=== PATIENT | female | born 1940 | race Caucasian/White ===

== ENCOUNTER 2020-05-26 11:06 | Inpatient (IN) ==
[2020-05-26] MEDS ORDERED: GABAPENTIN 400 MG CAPSULE PO SCH (11:30)
[2020-05-26] MEDS ORDERED: ceFAZolin 2 GM in DEXTROSE 5% IN WATER 50 ML IV SCH (12:00)
[2020-05-26] MEDS ORDERED: oxyCODONE 10 MG TAB.ER.12H PO SCH (12:00)
[2020-05-26] MEDS ORDERED: CELECOXIB 200 MG CAPSULE PO SCH (12:00)
[2020-05-26 12:48] LABS: Basophils # (Auto) 0.03 K/mcL (0.00-0.30); Basophils % (Auto) 0.5 % (0.0-2.0); Eosinophils # (Auto) 0.15 K/mcL (0.00-0.70); Eosinophils % (Auto) 2.5 % (0.0-7.0); Granulocytes % (Auto) 62.8 % (38.0-78.0); Hematocrit 35.8 % (34.1-44.9); Hemoglobin 11.3 g/dL (11.2-15.7); Lymphocytes % (Auto) 26.7 % (15.5-49.0); Mean Cell Volume 88.6 fL (80.0-100.0); Mean Corpuscular HGB Conc 31.6 g/dL (31.0-36.0); Mean Platelet Volume 9.5 fL (7.4-10.4); Monocytes # (Auto) 0.45 K/mcL (0.10-0.90); Monocytes % (Auto) 7.5 % (1.0-12.0); Platelet Count 306 K/mcL (140-440); RBC 4.04 M/mcL (3.59-5.38); Red Cell Distribution Width 14.8 % (11.5-14.5)
[2020-05-26 13:32] LABS: ALT/SGPT 9 U/l (0-40); AST/SGOT 17 U/l (0-37); Albumin 3.8 gm/dL (3.2-5.2); Albumin/Globulin Ratio 1.2 (1.0-2.3); Alkaline Phosphatase 85 U/L (39-117); Bilirubin,Total 0.3 mg/dL (0.0-1.0); Blood Urea Nitrogen 5 mg/dl (8-23); Calcium 8.8 mg/dl (8.6-10.4); Carbon Dioxide 24 mmol/L (22-30); Chloride 97 mmol/L (96-108); Globulin 3.1 gm/dL (2.2-3.7); Glomerular Filtration Rate 85; Glucose 102 mg/dL (70-105)
[2020-05-26] MEDS ORDERED: KETAMINE 100 MG/ML ML IV ONE (14:35)
[2020-05-26] MEDS ORDERED: PROPOFOL 200 MG/20 ML VIAL IV ONE (14:35)
[2020-05-26] MEDS ORDERED: ONDANSETRON 4 MG/2 ML VIAL IV ONE (14:35)
[2020-05-26] MEDS ORDERED: ROPIVACAINE HCL/PF 20 ML VIAL IJ ONE (14:35)
[2020-05-26] MEDS ORDERED: DEXAMETHASONE 10 MG/ML VIAL IV ONE (14:35)
[2020-05-26] MEDS ORDERED: fentaNYL 100 MCG/2 ML VIAL IV ONE (14:35)
[2020-05-26] MEDS ORDERED: METHOCARBAMOL 1,000 MG/10 ML VIAL IV PRN (14:49)
[2020-05-26] MEDS ORDERED: ONDANSETRON 4 MG/2 ML VIAL IV PRN ×2 (14:49→15:51)
[2020-05-26] MEDS ORDERED: IPRATROPIUM/ALBUTEROL 3 ML AMPUL.NEB NEB PRN (14:49)
[2020-05-26] MEDS ORDERED: METOPROLOL TARTRATE 5 MG/5 ML VIAL IV PRN (14:49)
[2020-05-26] MEDS ORDERED: diphenhydrAMINE 50 MG/ML VIAL IV PRN (14:49)
[2020-05-26] MEDS ORDERED: ePHEDrine 50 MG/ML AMPUL IV PRN (14:49)
[2020-05-26] MEDS ORDERED: MEPERIDINE 25 MG/ML SYRINGE IV PRN (14:49)
[2020-05-26] MEDS ORDERED: ATROPINE SULFATE 0.4 MG/ML VIAL IV PRN (14:49)
[2020-05-26] MEDS ORDERED: PROMETHAZINE 25 MG/ML VIAL IV PRN (14:49)
[2020-05-26] MEDS ORDERED: NALOXONE HCL 0.4 MG/ML VIAL IV PRN (14:49)
[2020-05-26] MEDS ORDERED: ACETAMINOPHEN 1,000 MG/100 ML BOTTLE IV ONE (14:49)
[2020-05-26] MEDS ORDERED: LACTATED RINGERS 1,000 ML IV SCH (15:00)
[2020-05-26] MEDS: VANCOMYCIN 1 GM VIAL TOPICAL SCH (15:27)
[2020-05-26] MEDS ORDERED: TRANEXAMIC ACID 1,000 MG/10 ML VIAL IV SCH (15:51)
[2020-05-26] MEDS ORDERED: MAGNESIUM HYDROXIDE 30 ML ORAL.SUSP PO PRN (15:51)
[2020-05-26] MEDS ORDERED: BISACODYL 10 MG SUPP.RECT PR PRN (15:51)
[2020-05-26] MEDS ORDERED: BENZOCAINE/MENTHOL 1 LOZENGE PO PRN (15:51)
[2020-05-26] MEDS ORDERED: POLYETHYLENE GLYCOL 3350 17 GM PACKET PO PRN (15:51)
[2020-05-26] MEDS ORDERED: FLEETS ADULT ENEMA PR PRN (15:51)
[2020-05-26] MEDS ORDERED: DEXTROSE 31 GM ORAL.SUSP PO PRN (15:51)
[2020-05-26] MEDS ORDERED: DEXTROSE 50% 50 ML VIAL IV PRN (15:51)
--- NOTE | 2020-05-26 15:51 | Brief Operative Note ---
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
[2020-05-26] MEDS ORDERED: VANCOMYCIN PER PHARMACY IV SCH (15:57)
[2020-05-26] MEDS ORDERED: RIFAMPIN 600 MG in 0.9 % SODIUM CHLORIDE 100 ML IV SCH (16:00)
[2020-05-26] MEDS: fentaNYL 100 MCG/2 ML VIAL IV PRN ×2 (16:14→16:56)
[2020-05-26] MEDS ORDERED: LORazepam 2 MG/ML VIAL IV ONE (16:33)
--- NOTE | 2020-05-26 16:43 | XRay Report ---
HISTORY: Postop debridement of infected left knee FINDINGS: There is a well positioned total knee prosthesis. There is no evidence of fracture or ribs were obtained of bone around the hardware. Multiple small pellets have been inserted into the joint. Majority of them are in the suprapatellar bursa. These may be antibiotic impregnated pellets. There Is also gas in soft tissues due to the surgical procedure. Surgical drain is located along the lateral aspect of the joint. The bones are normally mineralized. Impression: Normal postoperative changes and no evidence of osteomyelitis Interpreted and Authenticated by: Abad Fisher 05/26/20
[2020-05-26] MEDS: 0.9 % SODIUM CHLORIDE 1,000 ML IV SCH ×2 (17:49→18:26)
[2020-05-26] MEDS: oxyCODONE/APAP 5/325MG TABLET PO PRN ×2 (18:04→22:29)
[2020-05-26] MEDS: INSULIN LISPRO 1 UNIT/0.01 ML UNIT SQ SCH ×2 (18:08→22:28)
[2020-05-26] MEDS: BACLOFEN 10 MG TABLET PO PRN (18:24)
[2020-05-26] MEDS: metFORMIN 500 MG TABLET PO SCH (18:24)
[2020-05-26] MEDS: VANCOMYCIN 1,250 MG in 0.9 % SODIUM CHLORIDE 500 ML IV SCH (20:31)
[2020-05-26] MEDS ORDERED: NON FORMULARY MEDICATION 1 DOSE MISCELL (Aspirin 81 MG) PO SCH (21:00)
[2020-05-26] MEDS ORDERED: 0.9 % SODIUM CHLORIDE 10 ML SYRINGE IV SCH (22:00)
[2020-05-26] MEDS: PRAMIPEXOLE 0.25 MG TABLET PO SCH (22:18)
[2020-05-26] MEDS: ASPIRIN 81 MG TAB.CHEW PO SCH (22:18)
[2020-05-26] MEDS: DOCUSATE SODIUM 100 MG CAPSULE PO SCH (22:19)
[2020-05-26] MEDS: GABAPENTIN 400 MG CAPSULE PO SCH (22:19)
[2020-05-26] MEDS: SENNOSIDES 1 TABLET PO SCH (22:19)
[2020-05-26] MEDS: CALCIUM (OYSTER SHELL) 500 MG TABLET PO SCH (22:19)
[2020-05-26 22:20] LABS: Basophils # (Auto) 0.01 K/mcL (0.00-0.30); Basophils % (Auto) 0.1 % (0.0-2.0); Eosinophils # (Auto) 0.01 K/mcL (0.00-0.70); Eosinophils % (Auto) 0.1 % (0.0-7.0); Hematocrit 35.9 % (34.1-44.9); Hemoglobin 11.7 g/dL (11.2-15.7); Lymphocytes # (Auto) 0.58 K/mcL (1.50-4.80); Mean Cell Volume 86.7 fL (80.0-100.0); Mean Corpuscular HGB Conc 32.6 g/dL (31.0-36.0); Mean Platelet Volume 9.1 fL (7.4-10.4); Monocytes # (Auto) 0.08 K/mcL (0.10-0.90); Monocytes % (Auto) 0.8 % (1.0-12.0); Platelet Count 313 K/mcL (140-440); RBC 4.14 M/mcL (3.59-5.38); Red Cell Distribution Width 14.9 % (11.5-14.5); WBC 9.6 K/mcL (4.50-11.00)
[2020-05-26] MEDS: HYDROmorphone 0.5 MG/0.5 ML SYRINGE IV PRN (22:54)
[2020-05-26 23:19] LABS: Erythrocyte Sedimentation Rate 23 mm/hr (0-20)
[2020-05-27] MEDS: HYDROmorphone 0.5 MG/0.5 ML SYRINGE IV PRN (03:35)
[2020-05-27] MEDS: oxyCODONE/APAP 5/325MG TABLET PO PRN ×4 (03:53→16:36)
[2020-05-27] MEDS: 0.9 % SODIUM CHLORIDE 1,000 ML IV SCH ×2 (03:58→16:43)
[2020-05-27] MEDS: BACLOFEN 10 MG TABLET PO PRN (06:12)
[2020-05-27] MEDS: INSULIN LISPRO 1 UNIT/0.01 ML UNIT SQ SCH ×4 (07:00→20:00)
--- NOTE | 2020-05-27 07:33 | Operative Note ---
DATE OF OPERATION: 05/26/2020 PREOPERATIVE DIAGNOSES: Left knee wound dehiscence 3 weeks status post total knee. 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 PROCEDURES PERFORMED: Irrigation and debridement of the presumed infected total knee arthroplasty with polyethylene exchange to a size 4, 11 mm thick posterior stabilized insert. SURGEON: Evangelista Rolle MD CMV DRIVER: Ralph Marks PA-C. This provider's expertise and technical skill were required throughout the case. The PA assisted with preoperative coordination, intraoperative retraction, wound closure, dressing and splint application, as well as postoperative documentation and care coordination. ANESTHESIA: General. DRAINS: Large Hemovac. SPECIMENS: Culture and sensitivity as well as removed polyethylene insert. BLOOD LOSS: 50 mL COMPLICATIONS: None. POSTOPERATIVE CONDITION: Stable. INDICATIONS FOR SURGERY: This is an 79-year-old female who had undergone a total knee arthroplasty, I believe approximately 3 weeks prior. She had been doing okay, but then earlier this week in physical therapy, started having increased drainage out of her knee. They eventually took the dressing off and noted wound dehiscence. She was seen in the clinic and set up for washout. FINDINGS AT SURGERY: There was complete dehiscence down into the joint as well as what appeared to be the biofilm typically seen with infected total knee. PROCEDURE IN DETAIL: The patient had been seen in preoperative holding. Informed consent had been obtained after discussion of risks and benefits of surgery. Risks include, but are not limited to, bleeding; infection; injury to nerves, blood vessels, and other surrounding structures; anesthetic risks; and the possibility of needing further surgery. I did discuss with her in preoperative holding that we would have to see how deep the wound went and if it went all the way to the joint we would have to change out the polyethylene liner and put her on long-term IV antibiotics. She understood and wished to proceed. Correct operative site was marked and the patient was taken to the operating room and general anesthesia induced. Left lower extremity was carefully prepped and draped in normal sterile fashion. A timeout was performed verifying patient name, operative site, and plan. We did Esmarch the extremity and tourniquet was inflated. Ioban drape was placed over the knee and the central portion of the wound was dehisced, about the central third. I probed with my finger the wound and it did extend all the way through the extensor mechanism and down to the joint, so I did go ahead and extend the incision both proximal and distally and as I started inspecting, it had the appearance of an infected knee, even though I did not see gross pus. At this point, we elected to treat it as a presumed infected total knee arthroplasty. I went ahead and started aggressively debriding any nonviable appearing tissue or biofilm appearing tissue. I used curet and rongeur until we had done an essentially complete synovectomy. I also removed the polyethylene insert and tried to remove any tissue of the posterior knee as well. Prior to doing all that, however, I did take a culture. We then filled the joint with Betadine. I let this sit for 5 minutes. I then pulse lavaged 3 liters of saline. After that, I then irrigated copiously with IrriSept. After a minute of that I irrigated with another 3 liters. I then opened an 11 mm thick size 4 posterior stabilized insert and irrigated IrriSept on the tray and then impacted the insert. We then irrigated some more with IrriSept, after a minute irrigated more with saline and then we had mixed antibiotic absorbable beads on the back table. Unfortunately, these only had vancomycin in them as there was no tobramycin available in the hospital. These were sprinkled in the joint. I then placed a large Hemovac out the superolateral pouch. The knee was then flexed about 30 degrees and I then used #2 Stratafix monofilament absorbable barbed sutures to close the extensor mechanism. We then irrigated with the final IrriSept, after a minute final pulse lavage, and then 2-0 Monocryl for subcutaneous and wood for skin. Xeroform and sterile dressing were applied. The drain was hooked to a Hemovac suction and the tourniquet was released. The patient was awakened, extubated, and transferred to recovery in satisfactory condition. RANDOLPH:janine Job ID: [id number] Doc ID: [id number] Evangelista Rolle MD
[2020-05-27] MEDS ORDERED: 0.9 % SODIUM CHLORIDE 10 ML SYRINGE IV PRN (08:00)
[2020-05-27] MEDS: GABAPENTIN 400 MG CAPSULE PO SCH ×3 (08:11→20:02)
[2020-05-27] MEDS: PRAMIPEXOLE 0.25 MG TABLET PO SCH ×2 (08:12→20:02)
[2020-05-27] MEDS: metFORMIN 500 MG TABLET PO SCH ×2 (08:12→16:39)
[2020-05-27] MEDS: MULTIVIT,THER IRON,CA,FA & MIN 1 TABLET PO SCH (08:13)
[2020-05-27] MEDS: MAGNESIUM OXIDE 400 MG TABLET PO SCH (08:14)
[2020-05-27] MEDS: HYDROCHLOROTHIAZIDE 25 MG TABLET PO SCH (08:14)
[2020-05-27] MEDS: LISINOPRIL 20 MG TABLET PO SCH (08:14)
[2020-05-27] MEDS: amLODIPine 5 MG TABLET PO SCH (08:14)
[2020-05-27] MEDS: 0.9 % SODIUM CHLORIDE 10 ML SYRINGE IV SCH ×6 (08:15→20:32)
[2020-05-27] MEDS: ASPIRIN 81 MG TAB.CHEW PO SCH ×2 (08:15→20:02)
[2020-05-27] MEDS: DOCUSATE SODIUM 100 MG CAPSULE PO SCH ×2 (08:15→20:01)
[2020-05-27] MEDS: VANCOMYCIN 1,250 MG in 0.9 % SODIUM CHLORIDE 500 ML IV SCH (08:16)
[2020-05-27] MEDS ORDERED: FISH OIL 1,000 MG CAPSULE PO SCH (12:00)
[2020-05-27] MEDS: VANCOMYCIN 1 GM VIAL TOPICAL SCH (15:24)
[2020-05-27] MEDS: CALCIUM (OYSTER SHELL) 500 MG TABLET PO SCH (20:00)
[2020-05-27] MEDS: SENNOSIDES 1 TABLET PO SCH (20:01)
--- NOTE | 2020-05-27 20:06 | Orthopedic Progress Note ---
SUBJECTIVE Subjective Patient information: Note initiated : 05/27/20 at 8:02 pm Service Date, if different from initiated Date: [] Patient: Saundra Keller 79 y/o F admitted on 05/27/20 for Left Knee I&D of Surgical Wound. Chief Complaint: [knee wound draining] pain controlled Constitutional Vitals: Vital Signs Temp Pulse Resp BP Pulse Ox 98.5 F 83 16 162/73 94 05/27/20 19:20 05/27/20 19:20 05/27/20 19:20 05/27/20 19:20 05/27/20 19:20 Period Temp Pulse Resp BP Sys/Pinto Pulse Ox Last 24 Hr 97.7 F-99.1 F 83-97 14-18 146-162/70-84 92-95 Intake and Output 05/27/20 05/27/20 05/27/20 05:59 13:59 21:59 Intake Total 1400 360 800 Output Total 1338 239 6234 Balance 55 -295 -240 Weight 165 lb 9.6 oz Patient Weight 05/28/20 05:59 Weight 165 lb 9.6 oz Intake & Output: Intake & Output 05/27/20 05/27/20 05/27/20 05:59 13:59 21:59 Intake Total 1400 360 800 Output Total 1623 292 4835 Balance 55 -295 -240 Weight 165 lb 9.6 oz Intake: IV 500 Vancomycin 1,250 mg In Sodium 500 Chloride 0.9% 500 ml @ 333.3 mls/hr IV DAILY [facility] Rx#: [id number] Oral 900 360 800 Output: Drainage 55 40 Hemovac 55 40 Drainage 145 Hemovac 145 Void Amount 7204 [id number] 0121 Other: Meal applesauce Lunch Percent of Meal Consumed 100% 90 Feeding Ability Independent Assist with Tray Set Up Urine Appearance Clear Clear Clear Urine Color Bright Yellow Bright Yellow Bright Yellow Urine Odor Normal OBJ DATA Labs CBC & Chem 7: 05/26/20 21:10 05/26/20 11:27 Labs: Abnormal Lab Results 05/26/20 05/26/20 05/26/20 21:10 11:27 11:27 RDW 14.9 H 14.8 H Gran % 93.0 H Lymph % (Auto) 6.0 L [place] % (Auto) 0.8 L Gran # 8.95 H Lymph # (Auto) 0.58 L [place] # (Auto) 0.08 L ESR 23 H Potassium 3.2 L BUN 5 L Meds: Medications Amlodipine Besylate (Norvasc) 5 mg PO QDAY [facility] Last Admin: 05/27/20 08:14 Dose: 5 mg Documented by: Aspirin (Aspirin) 81 mg PO BID [facility] Last Admin: 05/27/20 08:15 Dose: 81 mg Documented by: Baclofen (Lioresal) 10 mg PO TIDP PRN PRN Reason: MUSCLE SPASMS Last Admin: 05/27/20 06:12 Dose: 10 mg Documented by: Bisacodyl (Dulcolax) 10 mg GA Q2-3DAYS PRN PRN Reason: Constipation Calcium Carbonate/Glycine (Oscal) 1,000 mg PO HS [facility] Last Admin: 05/26/20 22:19 Dose: 1,000 mg Documented by: Dextrose (Dextrose 50%) 0 ml IV UD PRN PRN Reason: Hypoglycemia Diagnostic Test (Pha) (Accu-Chek) 1 each FS ACHS [facility] Last Admin: 05/27/20 19:59 Dose: 1 each Documented by: Docusate Sodium (Colace) 100 mg PO BID [facility] Last Admin: 05/27/20 08:15 Dose: 100 mg Documented by: Gabapentin (Neurontin) 1,200 mg PO TID [facility] Last Admin: 05/27/20 16:38 Dose: 1,200 mg Documented by: Glucose (Insta-Glucose) 15 gm PO PRN PRN PRN Reason: Hypoglycemia Heparin Sodium (Porcine) (Heparin 10 Units/Ml Flush) 2 ml IV Q12 [facility] Last Admin: 05/27/20 20:00 Dose: Not Given Documented by: Hydrochlorothiazide (Oretic) 25 mg PO QAM [facility] Last Admin: 05/27/20 08:14 Dose: 25 mg Documented by: Hydromorphone HCl (Dilaudid) 0.5 - 1 mg IV Q2HP PRN; Protocol PRN Reason: Per Pain Protocol Last Admin: 05/27/20 03:35 Dose: 0.5 mg Documented by: Sodium Chloride (Sodium Chloride 0.9%) 1,000 mls @ 75 mls/hr IV .[id number] [facility] Last Admin: 05/27/20 16:43 Dose: Not Given Documented by: Vancomycin HCl 1,250 mg/ (Sodium Chloride) 500 mls @ 333.3 mls/hr IV DAILY [facility] Last Admin: 05/27/20 08:16 Dose: 333.3 mls/hr Documented by: Insulin Human Lispro (Humalog) 0 unit SQ ACHS [facility]; Protocol Last Admin: 05/27/20 20:00 Dose: Not Given Documented by: Iron Carb/Multivit/[place]/Folic Acid (Multivitamin W/Minerals) 1 tab PO DAILY [facility] Last Admin: 05/27/20 08:13 Dose: 1 tab Documented by: Lisinopril (Zestril) 20 mg PO QDAY [facility] Last Admin: 05/27/20 08:14 Dose: 20 mg Documented by: Magnesium Hydroxide (Milk Of Magnesia) 30 ml PO BIDP PRN PRN Reason: Constipation Magnesium Oxide (Magnesium Oxide) 400 mg PO DAILY [facility] Last Admin: 05/27/20 08:14 Dose: 400 mg Documented by: Metformin HCl (Glucophage) 1,000 mg PO BIDCC [facility] Last Admin: 05/27/20 16:39 Dose: 1,000 mg Documented by: Ondansetron HCl (Zofran) 4 mg IV Q4HP PRN; Protocol PRN Reason: Nausea And Vomiting Oxycodone/Acetaminophen (Percocet 5-325 Mg) 0 tab PO Q4HP PRN; Protocol PRN Reason: PAIN LEVEL 3-6 Last Admin: 05/27/20 16:36 Dose: 2 tab Documented by: Polyethylene Glycol (Miralax) 17 gm PO DAILYP PRN PRN Reason: Constipation Pramipexole Dihydrochloride (Mirapex) 0.25 mg PO BID [facility] Last Admin: 05/27/20 08:12 Dose: 0.25 mg Documented by: Bar (Senokot) 2 tab PO HS [facility] Last Admin: 05/26/20 22:19 Dose: 2 tab Documented by: Sodium Biphosphate/Sodium Phosphate (Fleets Adult) 1 dose GA Q3-4DAYS PRN PRN Reason: Constipation Sodium Chloride (Saline Flush) 10 ml IV UD PRN PRN Reason: FLUSH Sodium Chloride (Saline Flush) 10 ml IV Q12 [facility] Last Admin: 05/27/20 09:51 Dose: Not Given Documented by: Sodium Chloride (Saline Flush) 10 ml IV Q8 [facility] Last Admin: 05/27/20 16:36 Dose: Not Given Documented by: Throat Lozenges (Cepacol) 1 lozenge PO PRN PRN PRN Reason: Sore Throat Vancomycin HCl (Vancomycin) 4 gm TOPICAL ONCE [place]; Protocol Last Admin: 05/27/20 15:24 Dose: Not Given Documented by: Vancomycin HCl (Vancomycin Per Pharmacy) 1 order IV UD [place]; Protocol Exam: pt is awake and alert, dressing clean and dry toes nvi A/P Assessment and plan (1) Infection of total knee replacement: Status: Acute Comment: POD#1 s/p I&D and polyethylene exchange-stable ID consult pending, PICC line placement, d/c planning, mobilize Time Spent With Patient Time: Total time spent is greater than 50% in coordination of care (as jackie celis) at patient's floor/unit and/or counseling patient:
--- NOTE | 2020-05-27 20:08 | Infectious Disease Consult ---
HPI Data of Consult Primary Care Provider: Cheyanne Rubio Consult Narrative cc:: CC: Evangelista Rolle 79 year old lady with recent left knee TKA (May 05 2020) admitted with 3 day Hx of increased redness, drainage, pain and swelling of left knee. Pt reports that after her surgery she noticed yellow fluid filled blisters over left lower leg. She thinks it was around -14 May. She denies being on any topical creams or antibiotics. She was working with physical therapy on 05/24 when it was noticed that there is fluid seeping out of her incsion site. Pt also c/o pain, swelling. Pt was referred to Dr Rolle's clinic where she was seen and underwent knee tap which was concerning for infection. Cx grew Staph epidermidis. Pt underwent following procedure on 05/26: Irrigation and debridement of the presumed infected total knee arthroplasty with polyethylene exchange to a size 4, 11 mm thick posterior stabilized insert. POst-op pt was started on IV Vanc. At time of visit today, pt denied any fever, chills, n/v, diarrhea. Endorsed left knee pain. Confirmed above Hx. Lives with her son who helps her with daily chores. Review of Systems All systems: reviewed and no additional remarkable complaints except as stated PFSH PFSH Social History smoking status: Former smoker MEDS/ALLERGIES Home Medications and Allergies Home Medications Medication Instructions Recorded Confirmed Type amlodipine 5 mg PO QDAY 04/28/20 05/26/20 History baclofen 10 mg PO TIDP PRN 04/28/20 05/26/20 History calcium carbonate [Calcium 500] 1,000 mg PO HS 04/28/20 05/26/20 History gabapentin 1,200 mg PO TID 04/28/20 05/26/20 History hydrochlorothiazide 25 mg PO QAM 04/28/20 05/26/20 History hydrocodone-acetaminophen 1 - 2 tab PO Q4-6HP PRN 04/28/20 05/26/20 History lisinopril 20 mg PO QDAY 04/28/20 05/26/20 History magnesium oxide 400 mg PO QNOON 04/28/20 05/26/20 History metformin 1,000 mg PO BIDCC 04/28/20 05/26/20 History multivitamin 1 tab PO QDAY 04/28/20 05/26/20 History omega 1-egm-qeh-fish oil [Fish Oil] 2 cap PO QNOON 04/28/20 05/26/20 History pramipexole [Mirapex] 0.25 mg PO BID 04/28/20 05/26/20 History tramadol 50 mg PO Q6HP PRN 04/28/20 05/26/20 History aspirin 81 mg PO BID #30 tab 05/06/20 05/26/20 Rx Allergies Allergy/AdvReac Type Severity Reaction Status Date / Time glimepiride AdvReac Mild Nausea Verified 04/28/20 09:13 Physical Examination Vital Signs Vital signs: Temp Pulse Resp BP Pulse Ox 36.9 C 83 16 162/73 94 05/27/20 19:20 05/27/20 19:20 05/27/20 19:20 05/27/20 19:20 05/27/20 19:20 Constitutional General appearance: no acute distress and alert Additional Exam Additional exam: ao x 3, in nad no thrush chest cta s1 s2 normal left knee wrapped in surgical dressing distal left foot looks fine Results Laboratory Findings CBC and BMP: 05/26/20 21:10 05/26/20 11:27 Abnormal lab findings: Abnormal Labs 05/26/20 05/26/20 05/26/20 11:27 11:27 21:10 RDW 14.8 H 14.9 H Gran % 93.0 H Lymph % (Auto) 6.0 L [place] % (Auto) 0.8 L Gran # 8.95 H Lymph # (Auto) 0.58 L [place] # (Auto) 0.08 L ESR 23 H Potassium 3.2 L BUN 5 L Microbiology: Microbiology 05/26/20 16:45 Synovial Fluid - Knee Gram Stain - Final 05/26/20 16:45 Synovial Fluid - Knee Body Fluid Culture - Preliminary Staphylococcus epidermidis 05/26/20 16:45 Knee - Left Gram Stain - Final 05/26/20 16:45 Knee - Left Anaerobic Culture - Preliminary 05/26/20 16:45 Knee - Left Gram Stain - Final A/P Narrative A/P Narrative: A: 1. 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 Early growth of Staph epidermidis - no sepsis 2. Frailty Recommendations: - Continue IV Vanc at 1 gm q12 (pharmacy assisted dosing). Check trough before the 4th dose (target 10-20) - Start PO Rifampin 300 mg bid - anticipate 6 weeks of IV antibiotics followed by 4.5 mnths of PO antibiotics for a total of 6 mnth course - PICC line placement - await final synovial fluid and operative Cx. will modify antibiotics accordingly - MRSA nasal PCR, if not done - will talk with SW/SO about home health vs rehab placement will follow Junito Frank MD Infectious Diseases Time Spent With Patient Time: Total time spent is greater than 50% in coordination of care (as documented) at patient's floor/unit and/or counseling patient:
[2020-05-28] MEDS: HYDROmorphone 0.5 MG/0.5 ML SYRINGE IV PRN (03:38)
[2020-05-28] MEDS: 0.9 % SODIUM CHLORIDE 10 ML SYRINGE IV SCH ×5 (05:17→20:54)
[2020-05-28] MEDS: oxyCODONE/APAP 5/325MG TABLET PO PRN ×6 (05:30→22:42)
[2020-05-28] MEDS: 0.9 % SODIUM CHLORIDE 1,000 ML IV SCH (07:09)
--- NOTE | 2020-05-28 07:40 | Orthopedic Progress Note ---
SUBJECTIVE Subjective Patient information: Note initiated : 05/28/20 at 7:37 am Service Date, if different from initiated Date: [] Patient: Saundra Keller 79 y/o F admitted on 05/27/20 for Left Knee I&D of Surgical Wound. Chief Complaint: [knee pain] Pain improving slowly, feeling better Constitutional Vitals: Vital Signs Temp Pulse Resp BP Pulse Ox 98.5 F 81 16 153/80 94 05/28/20 03:40 05/28/20 03:40 05/28/20 03:40 05/28/20 03:40 05/28/20 03:40 Period Temp Pulse Resp BP Sys/Pinto Pulse Ox Last 24 Hr 97.7 F-99.1 F 73-90 16-20 123-162/55-80 92-95 Intake and Output 05/27/20 05/28/20 05/28/20 21:59 05:59 13:59 Intake Total 800 150 Output Total 1490 685 Balance -690 -535 Weight 165 lb 9.6 oz Intake & Output: Intake & Output 05/27/20 05/28/20 05/28/20 21:59 05:59 13:59 Intake Total 800 150 Output Total 1490 685 Balance -690 -535 Weight 165 lb 9.6 oz Intake: Oral 800 150 Output: Drainage 90 35 Hemovac 90 35 Urine Catheter Amount 400 Void Amount 1000 650 Other: Urine Appearance Clear Clear Urine Color Bright Yellow Bright Yellow Urine Odor Normal Stool Size Large Stool Color Brown Stool Consistency Soft # Bowel Movements 1 OBJ DATA Labs CBC & Chem 7: 05/26/20 21:10 05/26/20 11:27 Labs: Abnormal Lab Results 05/26/20 05/26/20 05/26/20 21:10 11:27 11:27 RDW 14.9 H 14.8 H Gran % 93.0 H Lymph % (Auto) 6.0 L [place] % (Auto) 0.8 L Gran # 8.95 H Lymph # (Auto) 0.58 L [place] # (Auto) 0.08 L ESR 23 H Potassium 3.2 L BUN 5 L Meds: Medications Amlodipine Besylate (Norvasc) 5 mg PO QDAY [facility] Last Admin: 05/27/20 08:14 Dose: 5 mg Documented by: Aspirin (Aspirin) 81 mg PO BID [facility] Last Admin: 05/27/20 20:02 Dose: 81 mg Documented by: Baclofen (Lioresal) 10 mg PO TIDP PRN PRN Reason: MUSCLE SPASMS Last Admin: 05/27/20 06:12 Dose: 10 mg Documented by: Bisacodyl (Dulcolax) 10 mg RI Q2-3DAYS PRN PRN Reason: Constipation Calcium Carbonate/Glycine (Oscal) 1,000 mg PO HS [facility] Last Admin: 05/27/20 20:00 Dose: 1,000 mg Documented by: Dextrose (Dextrose 50%) 0 ml IV UD PRN PRN Reason: Hypoglycemia Diagnostic Test (Pha) (Accu-Chek) 1 each FS ACHS [facility] Last Admin: 05/27/20 19:59 Dose: 1 each Documented by: Docusate Sodium (Colace) 100 mg PO BID [facility] Last Admin: 05/27/20 20:01 Dose: 100 mg Documented by: Gabapentin (Neurontin) 1,200 mg PO TID [facility] Last Admin: 05/27/20 20:02 Dose: 1,200 mg Documented by: Glucose (Insta-Glucose) 15 gm PO PRN PRN PRN Reason: Hypoglycemia Heparin Sodium (Porcine) (Heparin 10 Units/Ml Flush) 2 ml IV Q12 [facility] Last Admin: 05/27/20 20:00 Dose: Not Given Documented by: Hydrochlorothiazide (Oretic) 25 mg PO QAM [facility] Last Admin: 05/27/20 08:14 Dose: 25 mg Documented by: Hydromorphone HCl (Dilaudid) 0.5 - 1 mg IV Q2HP PRN; Protocol PRN Reason: Per Pain Protocol Last Admin: 05/28/20 03:38 Dose: 0.5 mg Documented by: Sodium Chloride (Sodium Chloride 0.9%) 1,000 mls @ 75 mls/hr IV .[id number] [facility] Last Admin: 05/28/20 07:09 Dose: Not Given Documented by: Vancomycin HCl 1,250 mg/ (Sodium Chloride) 500 mls @ 333.3 mls/hr IV DAILY [facility] Last Infusion: 05/27/20 09:47 Dose: Infused Documented by: Insulin Human Lispro (Humalog) 0 unit SQ ACHS [facility]; Protocol Last Admin: 05/27/20 20:00 Dose: Not Given Documented by: Iron Carb/Multivit/[place]/Folic Acid (Multivitamin W/Minerals) 1 tab PO DAILY [facility] Last Admin: 05/27/20 08:13 Dose: 1 tab Documented by: Lisinopril (Zestril) 20 mg PO QDAY [facility] Last Admin: 05/27/20 08:14 Dose: 20 mg Documented by: Magnesium Hydroxide (Milk Of Magnesia) 30 ml PO BIDP PRN PRN Reason: Constipation Magnesium Oxide (Magnesium Oxide) 400 mg PO DAILY [facility] Last Admin: 05/27/20 08:14 Dose: 400 mg Documented by: Metformin HCl (Glucophage) 1,000 mg PO BIDCC [facility] Last Admin: 05/27/20 16:39 Dose: 1,000 mg Documented by: Ondansetron HCl (Zofran) 4 mg IV Q4HP PRN; Protocol PRN Reason: Nausea And Vomiting Oxycodone/Acetaminophen (Percocet 5-325 Mg) 0 tab PO Q4HP PRN; Protocol PRN Reason: PAIN LEVEL 3-6 Last Admin: 05/28/20 05:30 Dose: 2 tab Documented by: Polyethylene Glycol (Miralax) 17 gm PO DAILYP PRN PRN Reason: Constipation Pramipexole Dihydrochloride (Mirapex) 0.25 mg PO BID [facility] Last Admin: 05/27/20 20:02 Dose: 0.25 mg Documented by: Rifampin (Rifampin) 300 mg PO BID@0700,1999 [facility]; Protocol [place]na (Senokot) 2 tab PO HS [facility] Last Admin: 05/27/20 20:01 Dose: 2 tab Documented by: Sodium Biphosphate/Sodium Phosphate (Fleets Adult) 1 dose RI Q3-4DAYS PRN PRN Reason: Constipation Sodium Chloride (Saline Flush) 10 ml IV UD PRN PRN Reason: FLUSH Sodium Chloride (Saline Flush) 10 ml IV Q12 [facility] Last Admin: 05/28/20 07:12 Dose: Not Given Documented by: Sodium Chloride (Saline Flush) 10 ml IV Q8 [facility] Last Admin: 05/28/20 05:17 Dose: 10 ml Documented by: Throat Lozenges (Cepacol) 1 lozenge PO PRN PRN PRN Reason: Sore Throat Vancomycin HCl (Vancomycin Per Pharmacy) 1 order IV UD [facility]; Protocol Exam: awake and alert, dressing clean and dry, A/P Narrative A/P Narrative: POD#2 s/p I&D of infected total knee-drainage output low, will d/c -still needs PICC line -d/c plan (home health vs snf) -ortho stable for d/c if social work and infectious disease agree Time Spent With Patient Time: Total time spent is greater than 50% in coordination of care (as documented) at patient's floor/unit and/or counseling patient:
--- NOTE | 2020-05-28 07:44 | Discharge Summary ---
Discharge Provider Provider Patient information: Note initiated : 05/28/20 at 7:40 am Service Date, if different from initiated Date: [] Patient: Saundra Keller 79 y/o F admitted on 05/27/20 for Left Knee I&D of Surgical Wound. 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 She was started on IV Vancomycin. Drainage decreased by POD#2 so drain pulled. Cultures have been negative. Infectious disease consulted and recommendations given. 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 Work on gaining full extension of knee. Posterior dislocation precautions provided. Hip abductor strengthening and gait training instructions provided. Apply Cryocuff as instructed. Discharge Plan Patient/Caregiver Discharge Instructions Activity: increase activity as tolerated Diet: Consistent Carbohydrate Prescriptions: New aspirin [aspirin] 325 MG tablet,delayed release (DR/EC) 81 mg PO BID Qty: 28 RF: 0 oxycodone [oxycodone] 5 MG tablet 5 - 10 mg PO Q4HP PRN (Reason: Pain) Qty: 90 RF: 0 No Action multivitamin Tablet 1 tab PO QDAY RF: 0 metformin 500 mg Tablet 1,000 mg PO BIDCC RF: 0 gabapentin 600 mg Tablet 1,200 mg PO TID RF: 0 lisinopril 20 mg Tablet 20 mg PO QDAY RF: 0 hydrocodone-acetaminophen 10-325 mg Tablet 1 - 2 tab PO Q4-6HP PRN (Reason: Pain) RF: 0 tramadol 50 mg Tablet 50 mg PO Q6HP PRN (Reason: Pain) RF: 0 calcium carbonate [Calcium 500] 500 mg calcium (1,250 mg) Tablet 1,000 mg PO HS RF: 0 baclofen 10 mg Tablet 10 mg PO TIDP PRN (Reason: MUSCLE SPASMS) RF: 0 omega 5-sdb-fhm-fish oil [Fish Oil] 1,000 mg (120 mg-180 mg) Capsule 2 cap PO QNOON RF: 0 magnesium oxide 400 mg magnesium Capsule 400 mg PO QNOON RF: 0 amlodipine 5 mg Tablet 5 mg PO QDAY RF: 0 pramipexole [Mirapex] 0.25 mg Tablet 0.25 mg PO BID RF: 0 hydrochlorothiazide 25 mg Tablet 25 mg PO QAM RF: 0 aspirin 81 mg tablet,delayed release (DR/EC) 81 mg PO BID Qty: 30 RF: 0 Other Ambulatory Orders: Physical Therapy DC - TKA (Routine) Location: None Selected Ordered By: Evangelista Rolle Follow Up Plan Follow up with: Evangelista Rolle MD [Physician] - Patient Disposition: Xfer SNF Rehab Potential: Good I certify that the patient requires SNF services: Yes Discharge Orders: Discharge Order (Routine); Ordered 05/28/20 Ordered By: Evangelista Rolle Pending Pending Pending: Resuscitation Status Full Code Diet Consistent Carbohydrate Diet Start SunMay 26 1552 Amlodipine Besylate (Norvasc) 5 mg PO QDAY [facility] Last Admin: 05/27/20 08:14 Dose: 5 mg Documented by: ANDERS Aspirin (Aspirin) 81 mg PO BID [facility] Last Admin: 05/27/20 20:02 Dose: 81 mg Documented by: Admin: 05/27/20 08:15 Dose: 81 mg Documented by: Admin: 05/26/20 22:18 Dose: 81 mg Documented by: AURA Baclofen (Lioresal) 10 mg PO TIDP PRN PRN Reason: MUSCLE SPASMS Last Admin: 05/27/20 06:12 Dose: 10 mg Documented by: Admin: 05/26/20 18:24 Dose: 10 mg Documented by: ANDERS Calcium Carbonate/Glycine (Oscal) 1,000 mg PO HS [facility] Last Admin: 05/27/20 20:00 Dose: 1,000 mg Documented by: Admin: 05/26/20 22:19 Dose: 1,000 mg Documented by: AURA Diagnostic Test (Pha) (Accu-Chek) 1 each FS ACHS [facility] Last Admin: 05/27/20 19:59 Dose: 1 each Documented by: Admin: 05/27/20 16:39 Dose: 1 each Documented by: Admin: 05/27/20 11:52 Dose: 1 each Documented by: Admin: 05/27/20 06:57 Dose: 1 each Documented by: Admin: 05/26/20 22:17 Dose: 1 each Documented by: Admin: 05/26/20 18:07 Dose: 1 each Documented by: ANDERS Docusate Sodium (Colace) 100 mg PO BID [facility] Last Admin: 05/27/20 20:01 Dose: 100 mg Documented by: Admin: 05/27/20 08:15 Dose: 100 mg Documented by: Admin: 05/26/20 22:19 Dose: 100 mg Documented by: AURA Gabapentin (Neurontin) 1,200 mg PO TID [facility] Last Admin: 05/27/20 20:02 Dose: 1,200 mg Documented by: Admin: 05/27/20 16:38 Dose: 1,200 mg Documented by: Admin: 05/27/20 08:11 Dose: 1,200 mg Documented by: Admin: 05/26/20 22:19 Dose: 1,200 mg Documented by: AURA Heparin Sodium (Porcine) (Heparin 10 Units/Ml Flush) 2 ml IV Q12 [facility] Last Admin: 05/27/20 20:00 Dose: Not Given Documented by: Admin: 05/27/20 09:50 Dose: Not Given Documented by: Admin: 05/27/20 08:15 Dose: Not Given Documented by: ANDERS Hydrochlorothiazide (Oretic) 25 mg PO QAM [facility] Last Admin: 05/27/20 08:14 Dose: 25 mg Documented by: ANDERS Hydromorphone HCl (Dilaudid) 0.5 - 1 mg IV Q2HP PRN; Protocol PRN Reason: Per Pain Protocol Last Admin: 05/28/20 03:38 Dose: 0.5 mg Documented by: Admin: 05/27/20 03:35 Dose: 0.5 mg Documented by: Admin: 05/26/20 22:54 Dose: 0.5 mg Documented by: RON Sodium Chloride (Sodium Chloride 0.9%) 1,000 mls @ 75 mls/hr IV .[id number] [facility] Last Admin: 05/28/20 07:09 Dose: Not Given Documented by: Admin: 05/27/20 16:43 Dose: Not Given Documented by: Admin: 05/27/20 03:58 Dose: Not Given Documented by: Admin: 05/26/20 18:26 Dose: 75 mls/hr Documented by: ANDERS Vancomycin HCl 1,250 mg/ (Sodium Chloride) 500 mls @ 333.3 mls/hr IV DAILY [facility] Last Infusion: 05/27/20 09:47 Dose: 0 mls/hr Documented by: Admin: 05/27/20 08:16 Dose: 333.3 mls/hr Documented by: Infusion: 05/26/20 22:02 Dose: 333.3 mls/hr Documented by: Admin: 05/26/20 20:31 Dose: 333.3 mls/hr Documented by: RON Insulin Human Lispro (Humalog) [address] [facility]; Protocol Last Admin: 05/27/20 20:00 Dose: Not Given Documented by: Admin: 05/27/20 16:41 Dose: Not Given Documented by: Admin: 05/27/20 11:52 Dose: Not Given Documented by: Admin: 05/27/20 07:00 Dose: Not Given Documented by: Admin: 05/26/20 22:28 Dose: 2 units Documented by: Admin: 05/26/20 18:08 Dose: Not Given Documented by: ANDERS Iron Carb/Multivit/Jinriksha Driver/Folic Acid (Multivitamin W/Minerals) 1 tab PO DAILY [facility] Last Admin: 05/27/20 08:13 Dose: 1 tab Documented by: ANDERS Lisinopril (Zestril) 20 mg PO QDAY [facility] Last Admin: 05/27/20 08:14 Dose: 20 mg Documented by: ANDERS Magnesium Oxide (Magnesium Oxide) 400 mg PO DAILY [facility] Last Admin: 05/27/20 08:14 Dose: 400 mg Documented by: ANDERS Metformin HCl (Glucophage) 1,000 mg PO BIDCC [facility] Last Admin: 05/27/20 16:39 Dose: 1,000 mg Documented by: Admin: 05/27/20 08:12 Dose: 1,000 mg Documented by: Admin: 05/26/20 18:24 Dose: 1,000 mg Documented by: ANDERS Oxycodone/Acetaminophen (Percocet 5-325 Mg) 0 tab PO Q4HP PRN; Protocol PRN Reason: PAIN LEVEL 3-6 Last Admin: 05/28/20 05:30 Dose: 2 tab Documented by: Admin: 05/28/20 00:00 Dose: 2 tab Documented by: Admin: 05/27/20 16:36 Dose: 2 tab Documented by: Admin: 05/27/20 12:30 Dose: 2 tab Documented by: Admin: 05/27/20 08:13 Dose: 2 tab Documented by: Admin: 05/27/20 03:53 Dose: 2 tab Documented by: Admin: 05/26/20 22:29 Dose: 2 tab Documented by: Admin: 05/26/20 18:04 Dose: 2 tab Documented by: ANDERS Pramipexole Dihydrochloride (Mirapex) 0.25 mg PO BID [facility] Last Admin: 05/27/20 20:02 Dose: 0.25 mg Documented by: Admin: 05/27/20 08:12 Dose: 0.25 mg Documented by: Admin: 05/26/20 22:18 Dose: 0.25 mg Documented by: AURA Dinero (Senokot) 2 tab PO HS [facility] Last Admin: 05/27/20 20:01 Dose: 2 tab Documented by: Admin: 05/26/20 22:19 Dose: 2 tab Documented by: AURA Sodium Chloride (Saline Flush) 10 ml IV Q12 [facility] Last Admin: 05/28/20 07:12 Dose: Not Given Documented by: Admin: 05/27/20 20:02 Dose: 10 ml Documented by: Admin: 05/27/20 09:51 Dose: Not Given Documented by: Admin: 05/27/20 08:15 Dose: 10 ml Documented by: ANDERS Sodium Chloride (Saline Flush) 10 ml IV Q8 [place] Last Admin: 05/28/20 05:17 Dose: 10 ml Documented by: Admin: 05/27/20 20:32 Dose: Not Given Documented by: Admin: 05/27/20 16:36 Dose: Not Given Documented by: Admin: 05/27/20 08:15 Dose: Not Given Documented by: ANDERS Shift Summary 05/28/20 04:41 Shift Summary by Juany Kerr Pt alert and oriented x4, calm and cooperative. Vital signs stable. Pt has received 2 tabs Percocet q4 for L knee pain with some relief and given 0.5 Dilaudid at 0330. She ambulated in room with PT (using FWW, gait belt, standby assist) but was limited by pain and was only able to make it to the door and back. Cryocuff providing some relief. She has been using the bedside commode to void. PT will attempt to do stairs with pt later this afternoon or tomorrow morning, as pt has 3 steps to enter home. Pt is currently needing PICC line placed for long-term antibx. She has a hemovac in place with serosanguineous output- verify with if to DC Hemovac. She is tolerating a carb consistent diet with no nausea. Pt will likely discharge home tomorrow pending PT and pain control. MRSA Swab done. Will update at bedside. Initialized on 05/28/20 04:41 - END OF NOTE
[2020-05-28] MEDS: MAGNESIUM OXIDE 400 MG TABLET PO SCH (08:06)
[2020-05-28] MEDS: PRAMIPEXOLE 0.25 MG TABLET PO SCH ×2 (08:06→20:50)
[2020-05-28] MEDS: GABAPENTIN 400 MG CAPSULE PO SCH ×3 (08:07→20:50)
[2020-05-28] MEDS: ASPIRIN 81 MG TAB.CHEW PO SCH ×2 (08:07→20:49)
[2020-05-28] MEDS: LISINOPRIL 20 MG TABLET PO SCH (08:07)
[2020-05-28] MEDS: MULTIVIT,THER IRON,CA,FA & MIN 1 TABLET PO SCH (08:07)
[2020-05-28] MEDS: DOCUSATE SODIUM 100 MG CAPSULE PO SCH ×2 (08:08→20:50)
[2020-05-28] MEDS: metFORMIN 500 MG TABLET PO SCH ×2 (08:08→17:42)
[2020-05-28] MEDS: RIFAMPIN 300 MG CAPSULE PO SCH ×2 (08:08→20:05)
[2020-05-28] MEDS: amLODIPine 5 MG TABLET PO SCH (08:08)
[2020-05-28] MEDS: HYDROCHLOROTHIAZIDE 25 MG TABLET PO SCH (08:08)
[2020-05-28] MEDS: INSULIN LISPRO 1 UNIT/0.01 ML UNIT SQ SCH ×4 (08:09→20:53)
[2020-05-28 08:43] LABS: ALT/SGPT 8 U/l (0-40); AST/SGOT 16 U/l (0-37); Albumin 3.4 gm/dL (3.2-5.2); Albumin/Globulin Ratio 1.4 (1.0-2.3); Alkaline Phosphatase 60 U/L (39-117); Bilirubin,Total 0.3 mg/dL (0.0-1.0); Blood Urea Nitrogen 5 mg/dl (8-23); Calcium 8.8 mg/dl (8.6-10.4); Carbon Dioxide 31 mmol/L (22-30); Chloride 96 mmol/L (96-108); Globulin 2.4 gm/dL (2.2-3.7); Glomerular Filtration Rate 85; Glucose 115 mg/dL (70-105)
[2020-05-28] MEDS: VANCOMYCIN 1,500 MG in 0.9 % SODIUM CHLORIDE 500 ML IV SCH (10:03)
[2020-05-28] MEDS: VANCOMYCIN 1,250 MG in 0.9 % SODIUM CHLORIDE 500 ML IV SCH (10:04)
--- NOTE | 2020-05-28 16:52 | Internal Med Progress Note ---
SUBJECTIVE Subjective Patient information: Note initiated : 05/28/20 at 4:50 pm Service Date, if different from initiated Date: [] Patient: Saundra Keller 79 y/o F admitted on 05/27/20 for Left Knee I&D of Surgical Wound. Chief Complaint: [] pt c/o left knee pain, rates it 05/14. denied any fever, chills, n/v, diarrhea. Constitutional Vitals: Vital Signs Temp Pulse Resp BP Pulse Ox 36.5 C 79 18 140/74 94 05/28/20 16:00 05/28/20 16:00 05/28/20 16:00 05/28/20 16:00 05/28/20 16:00 Period Temp Pulse Resp BP Sys/Pinto Pulse Ox Last 24 Hr 36.4 C-36.9 C 73-88 16- 123-162/55-80 92-94 Intake and Output 05/28/20 05/28/20 05/28/20 05:59 13:59 21:59 Intake Total 150 980 180 Output Total 685 900 550 Balance -535 80 -370 Weight 75.115 kg Patient Weight 05/29/20 05:59 Weight 75.115 kg Intake & Output: Intake & Output 05/28/20 05/28/20 05/28/20 05:59 13:59 21:59 Intake Total 150 980 180 Output Total 685 900 550 Balance -535 80 -370 Weight 75.115 kg Intake: IV 500 Vancomycin 1,500 mg In Sodium 500 Chloride 0.9% 500 ml @ 333.3 mls/hr IV Q24H [facility] Rx#: [id number] Oral 150 480 180 Output: Drainage 35 Hemovac 35 Void Amount 650 900 550 Other: Meal Lunch Percent of Meal Consumed 50% Feeding Ability Independent Urine Appearance Clear Clear Clear Urine Color Bright Yellow Pale Pale Urine Odor Normal Normal Stool Size Large Large Stool Color Brown Brown Stool Consistency Soft Soft # Bowel Movements 1 Additional findings Additional findings: ao x 3, in nad no thrush left knee wrapped in surgical dressing no edema, discoloration of left foot OBJ DATA Labs CBC & Chem 7: 05/26/20 21:10 05/28/20 07:49 Labs: Abnormal Lab Results 05/28/20 05/26/20 05/26/20 07:49 21:10 11:27 RDW 14.9 H Gran % 93.0 H Lymph % (Auto) 6.0 L [place] % (Auto) 0.8 L Gran # 8.95 H Lymph # (Auto) 0.58 L [place] # (Auto) 0.08 L ESR 23 H Potassium 3.2 L 3.2 L Carbon Dioxide 31 H BUN 5 L 5 L Glucose 115 H Total Protein 5.8 L 05/26/20 11:27 RDW 14.8 H Gran % Lymph % (Auto) [place] % (Auto) Gran # Lymph # (Auto) [place] # (Auto) ESR Potassium Carbon Dioxide BUN Glucose Total Protein Meds: Medications Amlodipine Besylate (Norvasc) 5 mg PO QDAY [facility] Last Admin: 05/28/20 08:08 Dose: 5 mg Documented by: Aspirin (Aspirin) 81 mg PO BID [facility] Last Admin: 05/28/20 08:07 Dose: 81 mg Documented by: Baclofen (Lioresal) 10 mg PO TIDP PRN PRN Reason: MUSCLE SPASMS Last Admin: 05/27/20 06:12 Dose: 10 mg Documented by: Bisacodyl (Dulcolax) 10 mg GA Q2-3DAYS PRN PRN Reason: Constipation Calcium Carbonate/Glycine (Oscal) 1,000 mg PO HS [facility] Last Admin: 05/27/20 20:00 Dose: 1,000 mg Documented by: Dextrose (Dextrose 50%) 0 ml IV UD PRN PRN Reason: Hypoglycemia Diagnostic Test (Pha) (Accu-Chek) 1 each FS ACHS [facility] Last Admin: 05/28/20 16:26 Dose: 1 each Documented by: Docusate Sodium (Colace) 100 mg PO BID [facility] Last Admin: 05/28/20 08:08 Dose: 100 mg Documented by: Gabapentin (Neurontin) 1,200 mg PO TID [facility] Last Admin: 05/28/20 15:07 Dose: 1,200 mg Documented by: Glucose (Insta-Glucose) 15 gm PO PRN PRN PRN Reason: Hypoglycemia Heparin Sodium (Porcine) (Heparin 10 Units/Ml Flush) 2 ml IV Q12 [facility] Last Admin: 05/28/20 08:09 Dose: Not Given Documented by: Hydrochlorothiazide (Oretic) 25 mg PO QAM [facility] Last Admin: 05/28/20 08:08 Dose: 25 mg Documented by: Hydromorphone HCl (Dilaudid) 0.5 - 1 mg IV Q2HP PRN; Protocol PRN Reason: Per Pain Protocol Last Admin: 05/28/20 03:38 Dose: 0.5 mg Documented by: Sodium Chloride (Sodium Chloride 0.9%) 1,000 mls @ 75 mls/hr IV .[id number] [facility] Last Admin: 05/28/20 07:09 Dose: Not Given Documented by: Vancomycin HCl 1,500 mg/ (Sodium Chloride) 500 mls @ 333.3 mls/hr IV Q24H [facility] Last Infusion: 05/28/20 11:34 Dose: Infused Documented by: Insulin Human Lispro (Humalog) 0 unit SQ ACHS [facility]; Protocol Last Admin: 05/28/20 16:26 Dose: Not Given Documented by: Iron Carb/Multivit/[place]/Folic Acid (Multivitamin W/Minerals) 1 tab PO DAILY [facility] Last Admin: 05/28/20 08:07 Dose: 1 tab Documented by: Lisinopril (Zestril) 20 mg PO QDAY [facility] Last Admin: 05/28/20 08:07 Dose: 20 mg Documented by: Magnesium Hydroxide (Milk Of Magnesia) 30 ml PO BIDP PRN PRN Reason: Constipation Magnesium Oxide (Magnesium Oxide) 400 mg PO DAILY [facility] Last Admin: 05/28/20 08:06 Dose: 400 mg Documented by: Metformin HCl (Glucophage) 1,000 mg PO BIDCC [facility] Last Admin: 05/28/20 08:08 Dose: 1,000 mg Documented by: Ondansetron HCl (Zofran) 4 mg IV Q4HP PRN; Protocol PRN Reason: Nausea And Vomiting Oxycodone/Acetaminophen (Percocet 5-325 Mg) 0 tab PO Q4HP PRN; Protocol PRN Reason: PAIN LEVEL 3-6 Last Admin: 05/28/20 15:10 Dose: 2 tab Documented by: Polyethylene Glycol (Miralax) 17 gm PO DAILYP PRN PRN Reason: Constipation Pramipexole Dihydrochloride (Mirapex) 0.25 mg PO BID [facility] Last Admin: 05/28/20 08:06 Dose: 0.25 mg Documented by: Rifampin (Rifampin) 300 mg PO BID@0700,2000 [facility]; Protocol Last Admin: 05/28/20 08:08 Dose: 300 mg Documented by: Senna (Senokot) 2 tab PO HS [facility] Last Admin: 05/27/20 20:01 Dose: 2 tab Documented by: Sodium Biphosphate/Sodium Phosphate (Fleets Adult) 1 dose GA Q3-4DAYS PRN PRN Reason: Constipation Sodium Chloride (Saline Flush) 10 ml IV UD PRN PRN Reason: FLUSH Sodium Chloride (Saline Flush) 10 ml IV Q12 [facility] Last Admin: 05/28/20 07:12 Dose: Not Given Documented by: Sodium Chloride (Saline Flush) 10 ml IV Q8 [facility] Last Admin: 05/28/20 13:28 Dose: Not Given Documented by: Throat Lozenges (Cepacol) 1 lozenge PO PRN PRN PRN Reason: Sore Throat Vancomycin HCl (Vancomycin Per Pharmacy) 1 order IV UD [facility]; Protocol A/P Narrative A/P Narrative: A: 1. 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 Early growth of Staph epidermidis - no sepsis - MRSA nasal PCR neg 2. Frailty Recommendations: - Continue IV Vanc at 1 gm q12 (pharmacy assisted dosing). Target serum Vans levels = 10-20 - Continue PO Rifampin 300 mg bid - anticipate 6 weeks of IV antibiotics followed by 4.5 mnths of PO antibiotics for a total of 6 mnth course Tentative stop date for IV antibiotics: 07/07/20 - PICC line placement - await final synovial fluid and operative Cx. will modify antibiotics accordingly will follow Junito Frank MD Infectious Diseases Time Spent With Patient Time: Total time spent is greater than 50% in coordination of care (as documented) at patient's floor/unit and/or counseling patient:
[2020-05-28] MEDS: CALCIUM (OYSTER SHELL) 500 MG TABLET PO SCH (20:47)
[2020-05-28] MEDS: SENNOSIDES 1 TABLET PO SCH (20:50)
[2020-05-28] MEDS: POTASSIUM CHLORIDE 20 MEQ TABLET PO SCH (20:50)
[2020-05-29] MEDS: 0.9 % SODIUM CHLORIDE 1,000 ML IV SCH (00:57)
[2020-05-29] MEDS: oxyCODONE/APAP 5/325MG TABLET PO PRN ×3 (03:42→11:29)
[2020-05-29] MEDS: RIFAMPIN 300 MG CAPSULE PO SCH (07:38)
[2020-05-29] MEDS: 0.9 % SODIUM CHLORIDE 10 ML SYRINGE IV SCH ×2 (08:59)
[2020-05-29] MEDS: VANCOMYCIN 1,500 MG in 0.9 % SODIUM CHLORIDE 500 ML IV SCH (09:00)
[2020-05-29] MEDS: INSULIN LISPRO 1 UNIT/0.01 ML UNIT SQ SCH (09:00)
[2020-05-29] MEDS: GABAPENTIN 400 MG CAPSULE PO SCH (09:05)
[2020-05-29] MEDS: amLODIPine 5 MG TABLET PO SCH (09:08)
[2020-05-29] MEDS: PRAMIPEXOLE 0.25 MG TABLET PO SCH (09:08)
[2020-05-29] MEDS: LISINOPRIL 20 MG TABLET PO SCH (09:09)
[2020-05-29] MEDS: HYDROCHLOROTHIAZIDE 25 MG TABLET PO SCH (09:09)
[2020-05-29] MEDS: MAGNESIUM OXIDE 400 MG TABLET PO SCH (09:09)
[2020-05-29] MEDS: ASPIRIN 81 MG TAB.CHEW PO SCH (09:09)
[2020-05-29] MEDS: MULTIVIT,THER IRON,CA,FA & MIN 1 TABLET PO SCH (09:09)
[2020-05-29] MEDS: DOCUSATE SODIUM 100 MG CAPSULE PO SCH (09:10)
[2020-05-29] MEDS: POTASSIUM CHLORIDE 20 MEQ TABLET PO SCH (09:10)
[2020-05-29] MEDS: metFORMIN 500 MG TABLET PO SCH (09:10)
--- NOTE | 2020-05-29 14:04 | Internal Med Progress Note ---
SUBJECTIVE Subjective Patient information: Note initiated : 05/29/20 at 2:00 pm Service Date, if different from initiated Date: [] Patient: Saundra Keller 79 y/o F admitted on 05/27/20 for Left Knee I&D of Surgical Wound. Chief Complaint: [] Pt feels much better. Rates her pain around 2-3/10. Was able to walk around in the room for PT. Is going to [facility] for PICC line placement this am. Constitutional Vitals: Vital Signs Temp Pulse Resp BP Pulse Ox 37.1 C 78 16 151/74 94 05/29/20 10:18 05/29/20 10:18 05/29/20 10:18 05/29/20 10:18 05/29/20 10:18 Period Temp Pulse Resp BP Sys/Pinto Pulse Ox Last 24 Hr 36.5 C-37.1 C 71-79 16-22 128-164/64-79 93-95 Intake and Output 05/29/20 05/29/20 05/29/20 05:59 13:59 21:59 Intake Total 1000 Output Total 1700 426 Balance -700 -426 Intake & Output: Intake & Output 05/29/20 05/29/20 05/29/20 05:59 13:59 21:59 Intake Total 1000 Output Total 1700 426 Balance -700 -426 Intake: Oral 1000 Output: Void Amount 1300 425 Urine/Stool Mix 400 1 Other: Meal Breakfast Percent of Meal Consumed 100% Urine Appearance Clear Urine Color Dark Yellow Dark Yellow Urine Odor Normal Normal Stool Size Moderate Small Stool Color Brown Brown Stool Consistency Soft Formed Loose # Voids 1 # Bowel Movements 1 Additional findings Additional findings: ao x 3, in nad left knee wrapped in dressing no lower leg edema OBJ DATA Labs CBC & Chem 7: 05/26/20 21:10 05/28/20 07:49 Labs: Abnormal Lab Results 05/28/20 05/26/20 07:49 21:10 RDW 14.9 H Gran % 93.0 H Lymph % (Auto) 6.0 L [place] % (Auto) 0.8 L Gran # 8.95 H Lymph # (Auto) 0.58 L [place] # (Auto) 0.08 L ESR 23 H Potassium 3.2 L Carbon Dioxide 31 H BUN 5 L Glucose 115 H Total Protein 5.8 L A/P Narrative A/P Narrative: A: 1. 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 Frailty Recommendations: - Continue IV Vanc at 1.5 gm q24 hrs (pharmacy assisted dosing). Target serum Vans levels = 10-20 - Continue PO Rifampin 300 mg bid - anticipate 6 weeks of IV antibiotics followed by 4.5 mnths of PO antibiotics for a total of 6 mnth course Tentative stop date for IV antibiotics: 07/07/20 Follow up labs: weekly CBC and CMP, Vanc serum levels every 5 days (with pharmacy to adjust dosing) ESR and CRP every other week - PICC line placement ID clinic f/u in 4 weeks Junito Frank MD Infectious Diseases Time Spent With Patient Time: Total time spent is greater than 50% in coordination of care (as documented) at patient's floor/unit and/or counseling patient:
== END 2020-05-29 11:31 | disposition home or self-care (01) | DRG 486 ==
LOC: SUR 11:06 → MEDSUR 11:06 → OBSVTOIN 05-27 13:23 → MEDSUR 05-27 14:38
PROVIDERS: ADMIT Orthopaedic Surgery; ATTEND Orthopaedic Surgery

== ENCOUNTER 2020-06-10 15:24 | Observation (INO) ==
[2020-06-10] MEDS ORDERED: fentaNYL 100 MCG/2 ML VIAL IV ONE ×2 (15:41→16:27)
--- NOTE | 2020-06-10 16:15 | Emergency Department Note ---
HPI General Chief complaint: Altered Mental Status Stated complaint: Altered level of Mentation Time Seen by Provider: 06/10/20 15:32 Source: patient and family Mode of arrival: ambulatory Limitations: altered mental status History of Present Illness HPI Narrative: Narrative: Patient presents emergency department with family for evaluation of altered mental status. She had recent knee surgery and has been on IV antibiotics for an infection. She recently ran out of her pain medication she been on 10 mg hydrocodone tablets. Family reports that today she has been rocking back and forth agitated and family thinks that she is withdrawing from pain medication. She is had no fever. No cough or difficulty breathing. No vomiting or diarrhea. No other complaints. Related Data Home Medications Medication Instructions Recorded Confirmed amlodipine 5 mg PO QDAY 04/28/20 06/10/20 baclofen 10 mg PO TIDP PRN 04/28/20 06/10/20 calcium carbonate [Calcium 500] 1,000 mg PO HS 04/28/20 06/10/20 gabapentin 1,200 mg PO TID 04/28/20 06/10/20 hydrochlorothiazide 25 mg PO QAM 04/28/20 06/10/20 lisinopril 20 mg PO QDAY 04/28/20 06/10/20 magnesium oxide 400 mg PO QNOON 04/28/20 06/10/20 metformin 1,000 mg PO BIDCC 04/28/20 06/10/20 multivitamin 1 tab PO QDAY 04/28/20 06/10/20 omega 5-yvk-utx-fish oil [Fish Oil] 2 cap PO QNOON 04/28/20 06/10/20 pramipexole [Mirapex] 0.125 mg PO BID 04/28/20 06/10/20 Previous Rx's Medication Instructions Recorded aspirin 81 mg PO BID #30 tab 05/06/20 oxycodone 5 - 10 mg PO Q4HP PRN #90 tab 05/28/20 rifampin 300 mg PO BID 38 Days #76 cap 05/29/20 oxycodone 5 - 10 mg PO Q4H PRN #10 cap 06/10/20 Allergies Allergy/AdvReac Type Severity Reaction Status Date / Time glimepiride AdvReac Mild Nausea Verified 04/28/20 09:13 Review of Systems ROS ROS Narrative: Narrative: As above, otherwise limited patient is not answering questions. PFSH Narrative Patient History Narrative: Narrative: Reviewed Medical/Surgical/Family History All Active Problems (Updated 06/10/20 @ 20:18 by Daniele May MD) Altered mental status (Acute) Acute dehydration (Acute) Infection of total knee replacement (Acute) Social History Smoking Status: Former smoker Exam Narrative Narrative: Narrative: Vital signs reviewed, please see nursing documentation General Limitations: altered mental status General appearance: alert Head Head: atraumatic, normocephalic and normal inspection Eye Eye: Present normal appearance, PERRL and EOMI ENT ENT: Present normal exam Neck Neck: Present normal inspection Respiratory Respiratory: Absent respiratory distress Extremities Extremities: Present other (Left lower extremity with dressing in place over the knee, there is surrounding erythema.) Neurological Neurological: Present alert and CN II-XII intact Psychiatric Psychiatric: Present agitated Skin Skin: Present warm Course Vital Signs Vital signs: Vital Signs Temperature 97.7 F 06/10/20 15:26 Pulse Rate 84 06/10/20 15:26 Respiratory Rate 20 06/10/20 15:26 Blood Pressure 142/68 06/10/20 15:26 Pulse Oximetry (%) 98 06/10/20 15:26 Temperature 97.7 F 06/10/20 15:26 Pulse Rate 51 L 06/10/20 18:31 Respiratory Rate 21 06/10/20 20:47 Blood Pressure 134/83 06/10/20 20:46 Pulse Oximetry (%) 91 06/10/20 18:31 [facility] Narrative Medical decision making narrative: Narrative: Signed that [address] brain showed no acute pathology, chest x-ray showed no acute cardiopulmonary pathology. Patient is medicated with IV fentanyl. Patient is hydrated with IV fluids. On reexam after work-up and treatment patient is sleeping, she is arousable but does not answer questions and goes right back to sleep. I spoke with Dr. Menendez on-call hospitalist. Case reviewed in detail over the phone. The patient is scheduled to return for IV antibiotics as an outpatient tomorrow and hospitalist recommended she received further IV hydration with D5 half-normal saline and felt the patient could safely be discharged home. She did awaken spontaneously in the emergency department and and was repetitively stating "my meds, my meds." Currently receiving IV fluids and resting comfortably. After infusion will have the nurses ambulate the patient. Patient's further care is signed over to Dr. Larsen [facility] emergency physician. Lab Data Result diagrams: 06/10/20 16:04 06/10/20 16:04 Labs: Lab Results 06/10/20 06/10/20 Range/Units 16:04 16:04 WBC 4.8 (4.50-11.00) K/mcL RBC 4.03 (3.59-5.38) M/mcL Hgb 11.3 (11.2-15.7) g/dL Hct 36.3 (34.1-44.9) % MCV 90.1 (80.0-100.0) fL MCH 28.0 (26.0-34.0) pg MCHC 31.1 (31.0-36.0) g/dL RDW 16.1 H (11.5-14.5) % Plt Count 139 L (140-440) K/mcL MPV 10.6 H (7.4-10.4) fL Gran % 64.4 (38.0-78.0) % Lymph % (Auto) 22.2 (15.5-49.0) % [place] % (Auto) 10.7 (1.0-12.0) % Eos % (Auto) 2.1 (0.0-7.0) % Baso % (Auto) 0.6 (0.0-2.0) % Gran # 3.07 (1.80-8.00) K/mcL Lymph # (Auto) 1.06 L (1.50-4.80) K/mcL [place] # (Auto) 0.51 (0.10-0.90) K/mcL Eos # (Auto) 0.10 (0.00-0.70) K/mcL Baso # (Auto) 0.03 (0.00-0.30) K/mcL Sodium 148 H (133-145) mmol/L Potassium 4.6 (3.3-5.1) mmol/L Chloride 109 H (96-108) mmol/L Carbon Dioxide 27 (22-30) mmol/L Anion Gap 12.0 (8-16) BUN 4 L (8-23) mg/dl Creatinine 0.7 (0.6-1.1) mg/dl GFR Calculation 81 Glucose 120 H (70-105) mg/dL Calcium 8.9 (8.6-10.4) mg/dl Total Bilirubin 0.3 (0.0-1.0) mg/dL AST 23 (0-37) U/l ALT 14 (0-40) U/l Alkaline Phosphatase 62 (39-117) U/L Total Protein 6.6 (5.9-8.4) gm/dL Albumin 3.8 (3.2-5.2) gm/dL Globulin 2.8 (2.2-3.7) gm/dL Albumin/Globulin Ratio 1.4 (1.0-2.3) Discharge Plan Patient/Caregiver Discharge Instructions Pt seen by FINISHED YARN EXAMINER/PA only: No Clinical Impression: Altered mental status, Acute dehydration Instructions: Dehydration (ED), Altered Mental Status (ED) Activity Restrictions/Additional Instructions: Follow up with your doctor within the next 3 days. Return to the ER for any persistent or worsening symptoms or any other concerns. Patient Disposition: Still a Patient Prescriptions: New oxycodone 5 mg capsule 5 - 10 mg PO Q4H PRN (Reason: pain) Qty: 10 RF: 0 No Action multivitamin Tablet 1 tab PO QDAY RF: 0 metformin 500 mg Tablet 1,000 mg PO BIDCC RF: 0 gabapentin 600 mg Tablet 1,200 mg PO TID RF: 0 lisinopril 20 mg Tablet 20 mg PO QDAY RF: 0 calcium carbonate [Calcium 500] 500 mg calcium (1,250 mg) Tablet 1,000 mg PO HS RF: 0 baclofen 10 mg Tablet 10 mg PO TIDP PRN (Reason: MUSCLE SPASMS) RF: 0 omega 8-uqd-gku-fish oil [Fish Oil] 1,000 mg (120 mg-180 mg) Capsule 2 cap PO QNOON RF: 0 magnesium oxide 400 mg magnesium Capsule 400 mg PO QNOON RF: 0 amlodipine 5 mg Tablet 5 mg PO QDAY RF: 0 pramipexole [Mirapex] 0.25 mg Tablet 0.125 mg PO BID RF: 0 hydrochlorothiazide 25 mg Tablet 25 mg PO QAM RF: 0 aspirin 81 mg tablet,delayed release (DR/EC) 81 mg PO BID Qty: 30 RF: 0 oxycodone [oxycodone] 5 MG tablet 5 - 10 mg PO Q4HP PRN (Reason: Pain) Qty: 90 RF: 0 rifampin 300 mg Capsule 300 mg PO BID 38 Days Qty: 76 RF: 0
--- NOTE | 2020-06-10 16:57 | Cat Scan Report ---
CLINICAL INFORMATION: Decreased mental status COMPARISON: None. TECHNIQUE: 2.5 mm helical slices were obtained in the skull base to vertex. Following reconstruction, axial reformatted images were reviewed at bone and parenchymal windows. The exam was performed using radiation dose optimization techniques including, but not limited to, automated exposure control, adjustment of the mA and/or kV according to patient size and use of iterative reconstruction technique. FINDINGS: The ventricles, sulci, fissures, and cisterns are normal in size and configuration for age. No extra-axial fluid collections are identified. The cerebrum, brainstem and cerebellum are unremarkable. There is no evidence of hemorrhage, mass effect, or edema. Bone windows show no osseous abnormality. IMPRESSION: Normal head CT without contrast for age. Interpreted and Authenticated by: Louis Lmea 06/10/20
[2020-06-10 17:04] LABS: Basophils # (Auto) 0.03 K/mcL (0.00-0.30); Basophils % (Auto) 0.6 % (0.0-2.0); Eosinophils % (Auto) 2.1 % (0.0-7.0); Granulocytes % (Auto) 64.4 % (38.0-78.0); Hematocrit 36.3 % (34.1-44.9); Hemoglobin 11.3 g/dL (11.2-15.7); Lymphocytes # (Auto) 1.06 K/mcL (1.50-4.80); Lymphocytes % (Auto) 22.2 % (15.5-49.0); Mean Cell Volume 90.1 fL (80.0-100.0); Mean Corpuscular HGB Conc 31.1 g/dL (31.0-36.0); Mean Platelet Volume 10.6 fL (7.4-10.4); Monocytes # (Auto) 0.51 K/mcL (0.10-0.90); Monocytes % (Auto) 10.7 % (1.0-12.0); Platelet Count 139 K/mcL (140-440); RBC 4.03 M/mcL (3.59-5.38); Red Cell Distribution Width 16.1 % (11.5-14.5); WBC 4.8 K/mcL (4.50-11.00)
[2020-06-10 17:12] LABS: ALT/SGPT 14 U/l (0-40); AST/SGOT 23 U/l (0-37); Albumin 3.8 gm/dL (3.2-5.2); Albumin/Globulin Ratio 1.4 (1.0-2.3); Alkaline Phosphatase 62 U/L (39-117); Bilirubin,Total 0.3 mg/dL (0.0-1.0); Blood Urea Nitrogen 4 mg/dl (8-23); Calcium 8.9 mg/dl (8.6-10.4); Carbon Dioxide 27 mmol/L (22-30); Chloride 109 mmol/L (96-108); Globulin 2.8 gm/dL (2.2-3.7); Glomerular Filtration Rate 81; Glucose 120 mg/dL (70-105)
--- NOTE | 2020-06-10 17:13 | XRay Report ---
CLINICAL INFORMATION: altered mental status COMPARISON: None. FINDINGS: The heart is mildly enlarged. Mediastinum and pulmonary vessels are unremarkable. Right PICC line tip overlies the mid right subclavian vein. Lungs are clear. No effusions. IMPRESSION: Mild cardiomegaly. No acute disease Interpreted and Authenticated by: Louis Lema 06/10/20
[2020-06-10] MEDS ORDERED: 0.9 % SODIUM CHLORIDE 500 ML IV ONE ×2 (18:04→20:00)
[2020-06-10] MEDS: DEXTROSE 5%-1/2NS 1,000 ML IV SCH (20:10)
--- NOTE | 2020-06-10 22:16 | Emergency Department Note ---
HPI General Chief complaint: Altered Mental Status Stated complaint: Altered level of Mentation Time Seen by Provider: 06/10/20 15:32 Source: patient and family Mode of arrival: ambulatory Limitations: altered mental status History of Present Illness HPI Narrative: Narrative:Patient is checked out to me at shift change from Dr. May. I reviewed her studies and discussed her situation with the patient as well as with her son with her permission. I tried to re-interview the patient to get some more history but patient was only nominal Lucid. It was impossible to get meaningful history. Her son states that normally she is able to talk normally and have a conversation but is becoming more forgetful. She is Definitely not at her baseline Related Data Home Medications Medication Instructions Recorded Confirmed amlodipine 5 mg PO QDAY 04/28/20 06/10/20 baclofen 10 mg PO TIDP PRN 04/28/20 06/10/20 calcium carbonate [Calcium 500] 1,000 mg PO HS 04/28/20 06/10/20 gabapentin 1,200 mg PO TID 04/28/20 06/10/20 hydrochlorothiazide 25 mg PO QAM 04/28/20 06/10/20 lisinopril 20 mg PO QDAY 04/28/20 06/10/20 magnesium oxide 400 mg PO QNOON 04/28/20 06/10/20 metformin 1,000 mg PO BIDCC 04/28/20 06/10/20 multivitamin 1 tab PO QDAY 04/28/20 06/10/20 omega 5-pky-dwb-fish oil [Fish Oil] 2 cap PO QNOON 04/28/20 06/10/20 pramipexole [Mirapex] 0.125 mg PO BID 04/28/20 06/10/20 Previous Rx's Medication Instructions Recorded aspirin 81 mg PO BID #30 tab 05/06/20 oxycodone 5 - 10 mg PO Q4HP PRN #90 tab 05/28/20 rifampin 300 mg PO BID 38 Days #76 cap 05/29/20 oxycodone 5 - 10 mg PO Q4H PRN #10 cap 06/10/20 Allergies Allergy/AdvReac Type Severity Reaction Status Date / Time glimepiride AdvReac Mild Nausea Verified 04/28/20 09:13 Review of Systems ROS ROS Narrative: Narrative: PFSH Narrative Patient History Narrative: Narrative: Medical/Surgical/Family History All Active Problems (Updated 06/11/20 @ 01:31 by Robert Larsen MD) Altered mental status (Acute) Acute dehydration (Acute) Opiate withdrawal (Acute) Acute hypokalemia (Acute) Hypocalcemia (Acute) Infection of total knee replacement (Acute) Social History Smoking Status: Former smoker Exam Narrative Narrative: Narrative:She is able to move around of the bed with some assistance. We attempted to get her up but she is a 2 person assist. Her son who came in and discussed the situation with me notes that normally she is able to get up on her own General Limitations: altered mental status General appearance: alert Course Vital Signs Vital signs: Vital Signs Temperature 97.7 F 06/10/20 15:26 Pulse Rate 84 06/10/20 15:26 Respiratory Rate 20 06/10/20 15:26 Blood Pressure 142/68 06/10/20 15:26 Pulse Oximetry (%) 98 06/10/20 15:26 Temperature 97.7 F 06/10/20 15:26 Pulse Rate 85 06/11/20 00:11 Respiratory Rate 15 06/11/20 00:11 Blood Pressure 147/93 06/11/20 00:02 Pulse Oximetry (%) 95 06/11/20 00:11 MDM MDM Narrative Medical decision making narrative: Narrative:Patient has acute hyponatremia likely secondary to hemoconcentration. She did receive some IV fluids. We will recheck At shift change I assume full care of this patient after Dr. May left. Repeat laboratory showed normalization of her sodium levels but now she has decreased potassium and calcium. I wrote for a dose of potassium oral as well as her home calcium supplement It was pretty clear after we tried to get her up that she was not able to go home. She is not at her baseline mentation nor functionality. CT scan of the head was negative as well as her chest x-ray and I do not have evidence of current infection; Clearly altered mentation of unclear etiology Even after opioid withdrawal symptoms Improved. Discussed scenario with Dr. Menendez, our hospitalist, She clearly cannot go home Even with the assistance of her son. He agreed to accept the patient for further care and evaluation in the hospital- Please see other documentation of previous discussions on Dr. May's note Lab Data Result diagrams: 06/10/20 16:04 06/10/20 16:04 Labs: Lab Results 06/10/20 06/10/20 06/10/20 Range/Units 16:04 16:04 22:20 WBC 4.8 (4.50-11.00) K/mcL RBC 4.03 (3.59-5.38) M/mcL Hgb 11.3 (11.2-15.7) g/dL Hct 36.3 (34.1-44.9) % POC Hct 33.0 L (36.0-48.0) % MCV 90.1 (80.0-100.0) fL MCH 28.0 (26.0-34.0) pg MCHC 31.1 (31.0-36.0) g/dL RDW 16.1 H (11.5-14.5) % Plt Count 139 L (140-440) K/mcL MPV 10.6 H (7.4-10.4) fL Gran % 64.4 (38.0-78.0) % Lymph % (Auto) 22.2 (15.5-49.0) % [place] % (Auto) 10.7 (1.0-12.0) % Eos % (Auto) 2.1 (0.0-7.0) % Baso % (Auto) 0.6 (0.0-2.0) % Gran # 3.07 (1.80-8.00) K/mcL Lymph # (Auto) 1.06 L (1.50-4.80) K/mcL [place] # (Auto) 0.51 (0.10-0.90) K/mcL Eos # (Auto) 0.10 (0.00-0.70) K/mcL Baso # (Auto) 0.03 (0.00-0.30) K/mcL POC Sodium 140 (133-145) mmol/L Sodium 148 H (133-145) mmol/L POC Potassium 2.8 L* (3.3-5.1) mmol/L Potassium 4.6 (3.3-5.1) mmol/L POC Chloride 114 H (96-108) mmol/L Chloride 109 H (96-108) mmol/L Carbon Dioxide 27 (22-30) mmol/L POC Total CO2 21 L (22-30) mmol/L Anion Gap 12.0 (8-16) POC BUN < 3 L (8-23) mg/dl BUN 4 L (8-23) mg/dl Creatinine 0.7 (0.6-1.1) mg/dl POC Creatinine 0.4 L (0.6-1.1) mg/dl GFR Calculation 81 Glucose 120 H (70-105) mg/dL POC Glucose 170 H (70-105) mg/dL Calcium 8.9 (8.6-10.4) mg/dl POC WB Ioniz Calcium 0.70 L* (1.16-1.32) mmol/L Total Bilirubin 0.3 (0.0-1.0) mg/dL AST 23 (0-37) U/l ALT 14 (0-40) U/l Alkaline Phosphatase 62 (39-117) U/L Total Protein 6.6 (5.9-8.4) gm/dL Albumin 3.8 (3.2-5.2) gm/dL Globulin 2.8 (2.2-3.7) gm/dL Albumin/Globulin Ratio 1.4 (1.0-2.3) Discharge Plan Patient/Caregiver Discharge Instructions Pt seen by CREDIT MANAGER/PA only: No Clinical Impression: Acute dehydration, Opiate withdrawal, Acute hypokalemia, Hypocalcemia Altered mental status Qualifiers: Altered mental status type: somnolence Qualified Code(s): R40.0 - Somnolence Patient Disposition: Xfer As Inpt ([facility]) Condition: Serious Discharge Date/Time: 06/11/20 00:14
[2020-06-10 22:35] LABS: POC Blood Urea Nitrogen < 3 mg/dl (8-23); POC CO2 21 mmol/L (22-30); POC Chloride 114 mmol/L (96-108); POC Creatinine 0.4 mg/dl (0.6-1.1); POC Glucose, Random 170 mg/dL (70-105); POC Potassium 2.8 mmol/L (3.3-5.1); POC Sodium 140 mmol/L (133-145)
[2020-06-10] MEDS ORDERED: POTASSIUM CHLORIDE 20 MEQ TABLET PO ONE (22:58)
--- NOTE | 2020-06-11 00:36 | Internal Med History&Physical ---
HPI History of Present Illness Patient information: Note initiated : 06/10/20 at 11:11 pm Service Date, if different from initiated Date: [] Patient: Saundra Keller 79 y/o F admitted on for Altered level of Mentation. Chief Complaint: Agitated confused History of present illness: Ms. Keller is a 79 year old F who presented to the ER along with her son following episode of confusion agitation. She recently was hospitalized was discharged on 05/28 following left knee prosthetic joint infection undergoing I&D of surgical wound and currently on IV vancomycin. She was noted by her family to be increasingly agitated and confused over the last 24 hours. She was brought in for evaluation. Initial work-up was essentially unremarkable for infectious process/imaging except for sodium 148, potassium 2.8/dehydration. Patient received crystalloid/calcium supplement along with fentanyl for recent knee surgery pain. However due to persistent mental status changes hospitalist service was consulted for admission. At the time of my evaluation patient appears pleasant but remains confused. Denies pain, shortness of breath, diarrhea. Could not provide a detailed history of recent events. Most of the history is obtained from review of [facility] records and ER physician. She however denies significant pain at the operative site. Review of systems 10 point review system was performed and is negative except for ones discussed above PFSH [facility] Social History smoking status: Unknown if ever smoked MEDS/ALLERGIES Home Medications and Allergies Home Medications Medication Instructions Recorded Confirmed Type amlodipine 5 mg PO QDAY 04/28/20 06/10/20 History baclofen 10 mg PO TIDP PRN 04/28/20 06/10/20 History calcium carbonate [Calcium 500] 1,000 mg PO HS 04/28/20 06/10/20 History gabapentin 1,200 mg PO TID 04/28/20 06/10/20 History hydrochlorothiazide 25 mg PO QAM 04/28/20 06/10/20 History lisinopril 20 mg PO QDAY 04/28/20 06/10/20 History magnesium oxide 400 mg PO QNOON 04/28/20 06/10/20 History metformin 1,000 mg PO BIDCC 04/28/20 06/10/20 History multivitamin 1 tab PO QDAY 04/28/20 06/10/20 History omega 7-xmn-xtu-fish oil [Fish Oil] 2 cap PO QNOON 04/28/20 06/10/20 History pramipexole [Mirapex] 0.125 mg PO BID 04/28/20 06/10/20 History aspirin 81 mg PO BID #30 tab 05/06/20 06/10/20 Rx oxycodone 5 - 10 mg PO Q4HP PRN #90 tab 05/28/20 06/10/20 Rx rifampin 300 mg PO BID 38 Days #76 cap 05/29/20 06/10/20 Rx oxycodone 5 - 10 mg PO Q4H PRN #10 cap 06/10/20 Rx Allergies Allergy/AdvReac Type Severity Reaction Status Date / Time glimepiride AdvReac Mild Nausea Verified 04/28/20 09:13 EXAM Constitutional Vitals: Temp Pulse Resp BP Pulse Ox 97.7 F 81 17 153/79 96 06/10/20 15:26 06/10/20 22:52 06/10/20 22:52 06/10/20 22:46 06/10/20 22:52 Head normocephalic Oral cavity moist No ear nose discharge Eye movement symmetrical Neck supple no lymphadenopathy S1-S2 occasionally irregular Nonlabored breathing Nondistended nontender abdomen Lower extremity no cyanosis clubbing or joint swelling Skin no suspicious lesion Psych anxious and confused Neuro moving all 4 extremities DATA Data Completed and Pending Labs on day of discharge: Labs from last 24 hours 06/10/20 06/10/20 06/10/20 22:20 16:04 16:04 WBC 4.8 RBC 4.03 Hgb 11.3 Hct 36.3 POC Hct 33.0 L MCV 90.1 MCH 28.0 MCHC 31.1 RDW 16.1 H Plt Count 139 L MPV 10.6 H Gran % 64.4 Lymph % (Auto) 22.2 [place] % (Auto) 10.7 Eos % (Auto) 2.1 Baso % (Auto) 0.6 Gran # 3.07 Lymph # (Auto) 1.06 L [place] # (Auto) 0.51 Eos # (Auto) 0.10 Baso # (Auto) 0.03 POC Sodium 140 Sodium 148 H POC Potassium 2.8 L* Potassium 4.6 POC Chloride 114 H Chloride 109 H Carbon Dioxide 27 POC Total CO2 21 L Anion Gap 12.0 POC BUN < 3 L BUN 4 L Creatinine 0.7 POC Creatinine 0.4 L GFR Calculation 81 Glucose 120 H POC Glucose 170 H Calcium 8.9 POC WB Ioniz Calcium 0.70 L* Total Bilirubin 0.3 AST 23 ALT 14 Alkaline Phosphatase 62 Total Protein 6.6 Albumin 3.8 Globulin 2.8 Albumin/Globulin Ratio 1.4 A/P Narrative A/P Narrative: * Acute change in mental status-unclear etiology, polypharmacy related including baclofen/opioid. Start crystalloid/thiamine. * Hypernatremia-2 L free water deficit. Continue placement * Hypokalemia 2.8 on replacement * History of hypertension continue amlodipine, thiazide * Recent prosthetic left knee infection continue rifampin * Neuropathy continue gabapentin * Pain management hold baclofen/continue Tylenol/low-dose opioids avoid sedative hypnotics * DM type II continue sliding-scale insulin/CC diet/metformin * Full code * Prophylaxis heparin Plan * Observation admit * crystalloids * PT OT nutrition support * Pre-existing medical condition management home meds * Neurochecks Time Spent With Patient Time: Total time spent is greater than 50% in coordination of care (as documented) at patient's floor/unit and/or counseling patient:
[2020-06-11] MEDS ORDERED: POLYETHYLENE GLYCOL 3350 17 GM PACKET PO PRN (01:14)
[2020-06-11] MEDS ORDERED: BISACODYL 10 MG SUPP.RECT PR PRN (01:14)
[2020-06-11] MEDS ORDERED: ACETAMINOPHEN 650 MG/65 ML BOTTLE IV PRN (01:14)
[2020-06-11] MEDS ORDERED: MELATONIN 3 MG TABLET PO PRN (01:14)
[2020-06-11] MEDS ORDERED: guaiFENesin/CODEINE 10 ML UDC PO PRN (01:14)
[2020-06-11] MEDS ORDERED: oxyCODONE HCL 5 MG TABLET PO PRN (01:14)
[2020-06-11] MEDS ORDERED: POTASSIUM CHLORIDE 40 MEQ in DEXTROSE 5% IN WATER 500 ML IV PRN (01:14)
[2020-06-11] MEDS ORDERED: MAGNESIUM SULFATE 2 GM/50 ML BAG IV PRN (01:14)
[2020-06-11] MEDS ORDERED: ACETAMINOPHEN 325 MG TABLET PO PRN (01:14)
[2020-06-11] MEDS ORDERED: ONDANSETRON 4 MG ODT TABLET SL PRN (01:14)
[2020-06-11] MEDS ORDERED: ONDANSETRON 4 MG/2 ML VIAL IV PRN (01:14)
[2020-06-11] MEDS: CALCIUM CARBONATE 500 MG TAB.CHEW CHEWED ONE ×2 (01:21→06:40)
[2020-06-11] MEDS ORDERED: oxyCODONE HCL 5 MG TABLET PO ONE (01:23)
[2020-06-11] MEDS ORDERED: CALCIUM CARBONATE 500 MG TAB.CHEW ONE (01:23)
[2020-06-11] MEDS: 0.9 % SODIUM CHLORIDE 1,000 ML IV SCH ×2 (01:32→21:25)
[2020-06-11] MEDS ORDERED: ACETAMINOPHEN 1,000 MG/100 ML BOTTLE IV ONE (02:52)
[2020-06-11] MEDS: DEXTROSE 5%-1/2NS 1,000 ML IV SCH (04:42)
[2020-06-11] MEDS: 0.9 % SODIUM CHLORIDE 10 ML SYRINGE IV SCH ×3 (05:38→21:19)
[2020-06-11 07:05] LABS: Hematocrit 34.3 % (34.1-44.9); Hemoglobin 10.6 g/dL (11.2-15.7); Mean Cell Volume 89.8 fL (80.0-100.0); Mean Corpuscular HGB Conc 30.9 g/dL (31.0-36.0); Mean Platelet Volume 11.6 fL (7.4-10.4); Platelet Count 114 K/mcL (140-440); RBC 3.82 M/mcL (3.59-5.38); Red Cell Distribution Width 16.3 % (11.5-14.5); WBC 4.4 K/mcL (4.50-11.00)
[2020-06-11 07:38] LABS: ALT/SGPT 15 U/l (0-40); AST/SGOT 22 U/l (0-37); Albumin 3.4 gm/dL (3.2-5.2); Albumin/Globulin Ratio 1.4 (1.0-2.3); Alkaline Phosphatase 53 U/L (39-117); Bilirubin,Direct < 0.2 mg/dL (0.0-0.3); Bilirubin,Total 0.3 mg/dL (0.0-1.0); Calcium 7.7 mg/dl (8.6-10.4); Carbon Dioxide 24 mmol/L (22-30); Chloride 106 mmol/L (96-108); Globulin 2.5 gm/dL (2.2-3.7); Glucose 114 mg/dL (70-105); Lactate Dehydrogenase 215 U/L (94-250); Phosphorous 3.1 mg/dL (2.7-4.5); Triglycerides 125 mg/dl (<150); Uric Acid 4.6 mg/dL (2.5-8.0)
[2020-06-11 07:40] LABS: Blood Urea Nitrogen 3 mg/dl (8-23); Glomerular Filtration Rate 91
[2020-06-11 08:42] LABS: Hypochromasia 1+ (NONE SEEN); Lymphocytes % 25 % (15-49); Monocytes % (Manual) 5 % (1-12); Platelet Estimate DECREASED (NORMAL); Polychromasia 1+ (NONE SEEN); RBC Morphology ABNORM (NORMAL); Segmented Neutrophils % 70 % (38-78)
[2020-06-11] MEDS ORDERED: NON FORMULARY MEDICATION 1 DOSE MISCELL (Multivitamin 1 TAB) PO SCH (09:00)
[2020-06-11] MEDS: POTASSIUM CHLORIDE 20 MEQ PACKET PO PRN ×2 (09:30→11:11)
[2020-06-11] MEDS ORDERED: VANCOMYCIN PER PHARMACY IV SCH (09:30)
[2020-06-11] MEDS: HEPARIN 5,000 UNIT/ML VIAL SQ SCH ×2 (09:31→21:17)
[2020-06-11] MEDS: CYANOCOBALAMIN (VITAMIN B-12) 500 MCG TABLET PO SCH ×2 (09:31→21:25)
[2020-06-11] MEDS: metFORMIN 500 MG TABLET PO SCH ×2 (09:31→17:26)
[2020-06-11] MEDS: LISINOPRIL 20 MG TABLET PO SCH (09:31)
[2020-06-11] MEDS: GABAPENTIN 400 MG CAPSULE PO SCH ×3 (09:31→21:24)
[2020-06-11] MEDS: THIAMINE 100 MG TABLET PO SCH (09:31)
[2020-06-11] MEDS: ASPIRIN 81 MG TAB.CHEW PO SCH ×2 (09:32→21:24)
[2020-06-11] MEDS: amLODIPine 5 MG TABLET PO SCH (09:32)
[2020-06-11] MEDS: HYDROCHLOROTHIAZIDE 25 MG TABLET PO SCH (09:32)
[2020-06-11] MEDS: MULTIVIT,THER IRON,CA,FA & MIN 1 TABLET PO SCH (09:32)
[2020-06-11] MEDS: PRAMIPEXOLE 0.25 MG TABLET PO SCH ×2 (09:32→21:24)
[2020-06-11] MEDS: DOCUSATE SODIUM 100 MG CAPSULE PO SCH ×2 (09:48→21:19)
[2020-06-11] MEDS: RIFAMPIN 300 MG CAPSULE PO SCH ×2 (11:10→21:25)
[2020-06-11] MEDS: VANCOMYCIN 1,000 MG in 0.9 % SODIUM CHLORIDE 250 ML IV SCH ×2 (11:10→21:18)
[2020-06-11] MEDS: MAGNESIUM OXIDE 400 MG TABLET PO SCH (13:04)
[2020-06-11] MEDS ORDERED: hydrALAZINE 20 MG/ML VIAL IV PRN (14:44)
[2020-06-11] MEDS ORDERED: CALCIUM (OYSTER SHELL) 500 MG TABLET PO SCH (21:00)
[2020-06-11] MEDS ORDERED: SENNOSIDES/DOCUSATE SODIUM 1 TAB TABLET PO SCH (21:00)
[2020-06-12] MEDS: 0.9 % SODIUM CHLORIDE 1,000 ML IV SCH (03:23)
[2020-06-12] MEDS: 0.9 % SODIUM CHLORIDE 10 ML SYRINGE IV SCH ×2 (05:31→14:10)
[2020-06-12 06:52] LABS: Hematocrit 32.5 % (34.1-44.9); Hemoglobin 10.2 g/dL (11.2-15.7); Mean Cell Volume 90.5 fL (80.0-100.0); Mean Corpuscular HGB Conc 31.4 g/dL (31.0-36.0); Mean Platelet Volume 11.3 fL (7.4-10.4); Platelet Count 111 K/mcL (140-440); RBC 3.59 M/mcL (3.59-5.38); Red Cell Distribution Width 16.7 % (11.5-14.5); WBC 4.8 K/mcL (4.50-11.00)
[2020-06-12 08:02] LABS: ALT/SGPT 15 U/l (0-40); AST/SGOT 18 U/l (0-37); Albumin 2.9 gm/dL (3.2-5.2); Albumin/Globulin Ratio 1.1 (1.0-2.3); Alkaline Phosphatase 58 U/L (39-117); Bilirubin,Direct < 0.2 mg/dL (0.0-0.3); Bilirubin,Total 0.3 mg/dL (0.0-1.0); Blood Urea Nitrogen 3 mg/dl (8-23); Calcium 8.4 mg/dl (8.6-10.4); Carbon Dioxide 25 mmol/L (22-30); Chloride 105 mmol/L (96-108); Globulin 2.6 gm/dL (2.2-3.7); Glomerular Filtration Rate 85; Glucose 117 mg/dL (70-105); Lactate Dehydrogenase 209 U/L (94-250); Phosphorous 3.6 mg/dL (2.7-4.5); Triglycerides 121 mg/dl (<150); Uric Acid 4.4 mg/dL (2.5-8.0)
[2020-06-12] MEDS: LISINOPRIL 20 MG TABLET PO SCH (08:30)
[2020-06-12] MEDS: THIAMINE 100 MG TABLET PO SCH (08:30)
[2020-06-12] MEDS: MULTIVIT,THER IRON,CA,FA & MIN 1 TABLET PO SCH (08:30)
[2020-06-12] MEDS: CYANOCOBALAMIN (VITAMIN B-12) 500 MCG TABLET PO SCH (08:30)
[2020-06-12] MEDS: DOCUSATE SODIUM 100 MG CAPSULE PO SCH (08:31)
[2020-06-12] MEDS: metFORMIN 500 MG TABLET PO SCH (08:31)
[2020-06-12] MEDS: amLODIPine 5 MG TABLET PO SCH (08:31)
[2020-06-12] MEDS: ASPIRIN 81 MG TAB.CHEW PO SCH (08:31)
[2020-06-12] MEDS: PRAMIPEXOLE 0.25 MG TABLET PO SCH (08:32)
[2020-06-12] MEDS: GABAPENTIN 400 MG CAPSULE PO SCH ×2 (08:32→14:10)
[2020-06-12] MEDS: HYDROCHLOROTHIAZIDE 25 MG TABLET PO SCH (08:33)
[2020-06-12] MEDS: HEPARIN 5,000 UNIT/ML VIAL SQ SCH (08:33)
[2020-06-12] MEDS: RIFAMPIN 300 MG CAPSULE PO SCH (08:34)
[2020-06-12 08:36] LABS: Anisocytosis FEW (NONE SEEN); Band Neutrophils % 1 % (0-10); Eosinophils % (Manual) 3 % (0-7); Lymphocytes % 23 % (15-49); Monocytes % (Manual) 13 % (1-12); Platelet Estimate DECREASED (NORMAL); RBC Morphology ABNORM (NORMAL); Reactive Lymphocytes 1 % (0-2); Segmented Neutrophils % 59 % (38-78)
[2020-06-12] MEDS: VANCOMYCIN 1,000 MG in 0.9 % SODIUM CHLORIDE 250 ML IV SCH (10:47)
--- NOTE | 2020-06-12 11:16 | Discharge Summary ---
Discharge Provider Provider Patient information: Note initiated : 06/12/20 at 11:16 am Service Date, if different from initiated Date: [] Patient: Saundra Keller 79 y/o F admitted on 06/11/20 for Altered level of Mentation. Discharge diagnosis * Acute change in mental status-likely pain medication related. Clinically resolved and now at baseline. 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 Keller is a 79 year old F who presented to the ER along with her son following episode of confusion agitation. She recently was hospitalized was discharged on 05/28 following left knee prosthetic joint infection undergoing I&D of surgical wound and currently on IV vancomycin. She was noted by her family to be increasingly agitated and confused over the last 24 hours. She was brought in for evaluation. Initial work-up was peggy chen unremarkable for infectious process/imaging except for sodium 148, potassium 2.8/dehydration. Patient received crystalloid/calcium supplement along with fentanyl for recent knee surgery pain. However due to persistent mental status changes hospitalist service was consulted for admission. At the time of my evaluation patient appears pleasant but remains confused. Denies pain, shortness of breath, diarrhea. Could not provide a detailed history of recent events. Most of the history is obtained from review of medical records and ER physician. She however denies significant pain at the operative site. 06/11-patient much improved and now able to converse. Still remains disoriented to place, potassium replacement ongoing. Improved sodium. On IV vancomycin for recent continue home medication. Pain in good control. No additional concerns expressed by nursing staff. Anticipate discharge in 24 hours. 06/12-patient doing well. No overnight events. Mentation back at baseline. Continue with IV antibiotics as per medications. Discharging home Infectious disease specialist recommendations: - Continue IV Vanc at 1 gm q12 (pharmacy assisted dosing). Target serum Vans levels = 10-20 - Continue PO Rifampin 300 mg bid - anticipate 6 weeks of IV antibiotics followed by 4.5 mnths of PO antibiotics for a total of 6 mnth course Tentative stop date for IV antibiotics: 07/07/20 Date of admission: 06/11/20 00:14 Discharge date: 06/12/20 Consults: 06/11/20 01:02 Consult to Physician [CONS] Stat Comment: Consulting Provider: Fabrizio Bhagat Reason For Exam: Physician to Consult Discharge Meds Discharge Medications Home Medications amlodipine 5 mg PO QDAY 04/28/20 [History Confirmed 06/10/20 Last Taken Unknown] calcium carbonate [Calcium 500] 1,000 mg PO HS 04/28/20 [History Confirmed 06/10/20 Last Taken Unknown] gabapentin 1,200 mg PO TID 04/28/20 [History Confirmed 06/10/20 Last Taken 05/26/20 07:00] hydrochlorothiazide 25 mg PO QAM 04/28/20 [History Confirmed 06/10/20 Last Taken Unknown] lisinopril 20 mg PO QDAY 04/28/20 [History Confirmed 06/10/20 Last Taken Unknown] magnesium oxide 400 mg PO QNOON 04/28/20 [History Confirmed 06/10/20 Last Taken Unknown] metformin 1,000 mg PO BIDCC 04/28/20 [History Confirmed 06/10/20 Last Taken 05/26/20 07:00] multivitamin 1 tab PO QDAY 04/28/20 [History Confirmed 06/10/20 Last Taken Unknown] omega 0-cpp-tfk-fish oil [Fish Oil] 2 cap PO QNOON 04/28/20 [History Confirmed 06/10/20 Last Taken Unknown] pramipexole [Mirapex] 0.125 mg PO BID 04/28/20 [History Confirmed 06/10/20 Last Taken 05/26/20 07:00] aspirin 81 mg PO BID #30 tab 05/06/20 [Rx Confirmed 06/10/20 Last Taken Unknown] oxycodone 5 - 10 mg PO Q4HP PRN #90 tab 05/28/20 [Rx Confirmed 06/10/20 Last Taken Unknown] rifampin 300 mg PO BID 38 Days #76 cap 05/29/20 [Rx Confirmed 06/10/20 Last Taken Unknown] oxycodone 5 - 10 mg PO Q4H PRN #10 cap 06/10/20 [Rx Last Taken Unknown] Vancomycin Per Pharmacy 1 order IV UD #25 unit 08/08/20 [Rx Last Taken Unknown] COURSE Hospital Course Hospital course: . Discharge diagnosis: . Time Spent with Patient Time attestation: Total time spent providing and/or coordinating discharge services: EXAM Constitutional Vitals: Temp Pulse Resp BP Pulse Ox 98.2 F 79 18 182/87 96 06/12/20 06:50 06/12/20 06:50 06/12/20 06:50 06/12/20 06:50 06/12/20 06:50 Discharge Data Data Completed and Pending Labs on day of discharge: Labs from last 24 hours 06/12/20 06/12/20 06/12/20 08:15 05:30 05:30 WBC 4.8 RBC 3.59 Hgb 10.2 L Hct 32.5 L MCV 90.5 MCH 28.4 MCHC 31.4 RDW 16.7 H Plt Count 111 L MPV 11.3 H Total Counted 100 Seg Neutrophils % 59 Band Neutrophils % 1 Lymphocytes % 23 Monocytes % (Manual) 13 H Eosinophils % (Manual) 3 Reactive Lymphocytes 1 Platelet Estimate Decreased RBC Morphology Abnorm A Anisocytosis Few A Sodium 143 Potassium 3.1 L Chloride 105 Carbon Dioxide 25 Anion Gap 13.0 BUN 3 L Creatinine 0.6 GFR Calculation 85 Glucose 117 H Uric Acid 4.4 Calcium 8.4 L Phosphorus 3.6 Magnesium 2.0 Total Bilirubin 0.3 Direct Bilirubin < 0.2 GGT 35 AST 18 ALT 15 Alkaline Phosphatase 58 Lactate Dehydrogenase 209 Total Protein 5.5 L Albumin 2.9 L Globulin 2.6 Albumin/Globulin Ratio 1.1 Triglycerides 121 Vancomycin Trough 13.8 Discharge Plan Patient/Caregiver Discharge Instructions Activity: increase activity as tolerated Diet: Regular Diet and Consistent Carbohydrate Instructions: Dehydration (ED), Altered Mental Status (ED) Activity Restrictions/Additional Instructions: Follow up with your doctor within the next 3 days. Return to the ER for any persistent or worsening symptoms or any other concerns. Prescriptions: New oxycodone 5 mg capsule 5 - 10 mg PO Q4H PRN (Reason: pain) Qty: 10 RF: 0 Vancomycin Per Pharmacy 1 order IV UD Qty: 25 RF: 0 Continued multivitamin Tablet 1 tab PO QDAY RF: 0 metformin 500 mg Tablet 1,000 mg PO BIDCC RF: 0 gabapentin 600 mg Tablet 1,200 mg PO TID RF: 0 lisinopril 20 mg Tablet 20 mg PO QDAY RF: 0 calcium carbonate [Calcium 500] 500 mg calcium (1,250 mg) Tablet 1,000 mg PO HS RF: 0 omega 8-bge-qso-fish oil [Fish Oil] 1,000 mg (120 mg-180 mg) Capsule 2 cap PO QNOON RF: 0 magnesium oxide 400 mg magnesium Capsule 400 mg PO QNOON RF: 0 amlodipine 5 mg Tablet 5 mg PO QDAY RF: 0 pramipexole [Mirapex] 0.25 mg Tablet 0.125 mg PO BID RF: 0 hydrochlorothiazide 25 mg Tablet 25 mg PO QAM RF: 0 aspirin 81 mg tablet,delayed release (DR/EC) 81 mg PO BID Qty: 30 RF: 0 oxycodone 5 MG tablet 5 - 10 mg PO Q4HP PRN (Reason: Pain) Qty: 90 RF: 0 rifampin 300 mg Capsule 300 mg PO BID 38 Days Qty: 76 RF: 0 Discontinued baclofen 10 mg Tablet 10 mg PO TIDP PRN (Reason: MUSCLE SPASMS) RF: 0 Follow Up Plan Patient Disposition: Home, Self-Care Prognosis: Serious Rehab Potential: Fair I certify that the patient requires SNF services: No Overall status at discharge: patient is progressing back to baseline Discharge Orders: Discharge Order (Routine); Ordered 06/12/20 Ordered By: Fabrizio COSTA VTE Deep Vein Thrombosis/Pulmonary Embolism Present on Admission: No
--- NOTE | 2020-06-12 11:18 | Internal Med Progress Note ---
SUBJECTIVE Subjective Patient information: Note initiated : 06/11/20 at 10:16 am Service Date, if different from initiated Date: [] Patient: Saundra Keller 79 y/o F admitted on 06/11/20 for Altered level of Mentation. Chief Complaint: Ms. Keller is a 79 year old F who presented to the ER along with her son following episode of confusion agitation. She recently was hospitalized was discharged on 05/28 following left knee prosthetic joint infection undergoing I&D of surgical wound and currently on IV vancomycin. She was noted by her family to be increasingly agitated and confused over the la st 24 hours. She was brought in for evaluation. Initial work-up was essentially unremarkable for infectious process/imaging except for sodium 148, potassium 2.8/dehydration. Patient received crystalloid/calcium supplement along with fentanyl for recent knee surgery pain. However due to persistent mental status changes hospitalist service was consulted for admission. At the time of my evaluation patient appears pleasant but remains confused. Denies pain, shortness of breath, diarrhea. Could not provide a detailed history of recent events. Most of the history is obtained from review of medical records and ER physician. She however denies significant pain at the operative site. 06/11-patient much improved and now able to converse. Still remains disoriented to place, potassium replacement ongoing. Improved sodium. On IV vancomycin for recent continue home medication. Pain in good control. No additional concerns expressed by nursing staff. Anticipate discharge in 24 hours. Constitutional Vitals: Vital Signs Temp Pulse Resp BP Pulse Ox 98.2 F 79 18 182/87 96 06/12/20 06:50 06/12/20 06:50 06/12/20 06:50 06/12/20 06:50 06/12/20 06:50 Period Temp Pulse Resp BP Sys/Pinto Pulse Ox Last 24 Hr 98.2 F-98.4 F 72-85 16-20 141-182/63-87 92-97 Intake and Output 06/11/20 06/12/20 06/12/20 21:59 05:59 13:59 Intake Total 1790 800 Output Total 361 720 5416 Balance 1565 50 -1000 weight 74.389 kg alert and respond to commands Nonlabored breathing No anxiety Intake & Output: Intake & Output 06/11/20 06/12/20 06/12/20 21:59 05:59 13:59 Intake Total 1790 800 Output Total 643 735 3026 Balance 1565 50 -1000 Weight 74.389 kg Intake: IV 1250 250 Sodium Chloride 0.9% 1,000 ml @ 1000 50 mls/hr IV .Q20H [place] Rx#: [id number] Vancomycin 1,000 mg In Sodium 250 250 Chloride 0.9% 250 ml @ 250 mls/ hr IV Q12H [place] Rx#:[id number] Oral 540 550 Output: Void Amount 750 1000 Urine/Stool Mix 225 Other: Meal Dinner Percent of Meal Consumed 100% Urine Appearance Clear Clear Urine Color Bright Yellow Bright Yellow Urine Odor Normal Stool Color Brown Stool Consistency Loose OBJ DATA Labs CBC & Chem 7: 06/12/20 05:30 06/12/20 05:30 Labs: Abnormal Lab Results 06/12/20 06/12/20 06/11/20 05:30 05:30 05:30 WBC Hgb 10.2 L Hct 32.5 L POC Hct MCHC RDW 16.7 H Plt Count 111 L MPV 11.3 H Lymph # (Auto) Monocytes % (Manual) 13 H RBC Morphology Abnorm A Polychromasia Hypochromasia Anisocytosis Few A Sodium POC Potassium Potassium 3.1 L 2.6 L* POC Chloride Chloride POC Total CO2 POC BUN BUN 3 L 3 L Creatinine 0.5 L POC Creatinine Glucose 117 H 114 H POC Glucose Calcium 8.4 L 7.7 L POC WB Ioniz Calcium GGT 37 H Total Protein 5.5 L Albumin 2.9 L 06/11/20 06/10/20 06/10/20 05:30 22:20 16:04 WBC 4.4 L Hgb 10.6 L Hct POC Hct 33.0 L MCHC 30.9 L RDW 16.3 H Plt Count 114 L MPV 11.6 H Lymph # (Auto) Monocytes % (Manual) RBC Morphology Abnorm A Polychromasia 1+ A Hypochromasia 1+ A Anisocytosis Sodium 148 H POC Potassium 2.8 L* Potassium POC Chloride 114 H Chloride 109 H POC Total CO2 21 L POC BUN < 3 L BUN 4 L Creatinine POC Creatinine 0.4 L Glucose 120 H POC Glucose 170 H Calcium POC WB Ioniz Calcium 0.70 L* GGT Total Protein Albumin 06/10/20 16:04 WBC Hgb Hct POC Hct MCHC RDW 16.1 H Plt Count 139 L MPV 10.6 H Lymph # (Auto) 1.06 L Monocytes % (Manual) RBC Morphology Polychromasia Hypochromasia Anisocytosis Sodium POC Potassium Potassium POC Chloride Chloride POC Total CO2 POC BUN BUN Creatinine POC Creatinine Glucose POC Glucose Calcium POC WB Ioniz Calcium GGT Total Protein Albumin Meds: Medications Acetaminophen (Tylenol) 650 mg PO Q4-6HP PRN; Protocol PRN Reason: Per Pain Protocol/Fever > 101 Amlodipine Besylate (Norvasc) 5 mg PO QDAY [facility] Last Admin: 06/12/20 08:31 Dose: 5 mg Documented by: Aspirin (Aspirin) 81 mg PO BID [facility] Last Admin: 06/12/20 08:31 Dose: 81 mg Documented by: Bisacodyl (Dulcolax) 10 mg RI Q2-3DAYS PRN PRN Reason: Constipation Calcium Carbonate/Glycine (Oscal) 1,000 mg PO HS [facility] Last Admin: 06/11/20 21:25 Dose: 1,000 mg Documented by: Cyanocobalamin (Vitamin B-12) 1,000 mcg PO BID [facility] Stop: 06/15/20 21:01 Last Admin: 06/12/20 08:30 Dose: 1,000 mcg Documented by: Docusate Sodium (Colace) 100 mg PO BID [facility] Last Admin: 06/12/20 08:31 Dose: 100 mg Documented by: Gabapentin (Neurontin) 1,200 mg PO TID [facility] Last Admin: 06/12/20 08:32 Dose: 1,200 mg Documented by: Guaifenesin/Codeine Phosphate (Robitussin Ac) 10 ml PO Q4HP PRN PRN Reason: Cough Heparin Sodium (Porcine) (Heparin) 5,000 unit SQ Q12 [facility] Last Admin: 06/12/20 08:33 Dose: 5,000 unit Documented by: Hydralazine HCl (Apresoline) 10 mg IV Q4H PRN PRN Reason: Hypertension Last Admin: 06/11/20 15:00 Dose: 10 mg Documented by: Hydrochlorothiazide (Oretic) 25 mg PO QAM [facility] Last Admin: 06/12/20 08:33 Dose: 25 mg Documented by: Sodium Chloride (Sodium Chloride 0.9%) 1,000 mls @ 50 mls/hr IV .Q20H [facility] Stop: 06/13/20 13:13 Last Admin: 08/08/20 03:23 Dose: 50 mls/hr Documented by: Acetaminophen (Ofirmev) 650 mg in 65 mls @ 130 mls/hr IV Q6HP PRN; Protocol PRN Reason: Per Pain Protocol/Fever > 101 Last Admin: 06/11/20 02:55 Dose: 130 mls/hr Documented by: Magnesium Sulfate (Magnesium Sulfate) 2 gm in 50 mls @ 50 mls/hr IV UD PRN PRN Reason: MG = or < 1.7 Potassium Chloride 40 meq/ (Dextrose) 520 mls @ 130 mls/hr IV UD PRN PRN Reason: K+ = or < 3.5 Vancomycin HCl 1,000 mg/ (Sodium Chloride) 250 mls @ 250 mls/hr IV Q12H [facility] Last Admin: 06/12/20 10:47 Dose: 250 mls/hr Documented by: Iron Carb/Multivit/Bristol/Folic Acid (Multivitamin W/Minerals) 1 tab PO DAILY [facility] Last Admin: 06/12/20 08:30 Dose: 1 tab Documented by: Lisinopril (Zestril) 20 mg PO QDAY [facility] Last Admin: 06/12/20 08:30 Dose: 20 mg Documented by: Magnesium Oxide (Magnesium Oxide) 400 mg PO QNOON [facility] Last Admin: 06/11/20 13:04 Dose: 400 mg Documented by: Melatonin (Melatonin 3mg Tablet) 3 mg PO HSP PRN PRN Reason: Insomnia Metformin HCl (Glucophage) 1,000 mg PO BIDCC [facility] Last Admin: 06/12/20 08:31 Dose: 1,000 mg Documented by: Ondansetron HCl (Zofran Odt) 4 mg SL Q4-6HP PRN; Protocol PRN Reason: Nausea And Vomiting Ondansetron HCl (Zofran) 4 mg IV Q4-6HP PRN; Protocol PRN Reason: Nausea And Vomiting Oxycodone HCl (Roxicodone) 5 - 10 mg PO Q4HP PRN; Protocol PRN Reason: Pain Polyethylene Glycol (Miralax) 17 gm PO DAILYP PRN PRN Reason: Constipation Potassium Chloride (Klor-Con) 40 meq PO DAILYP PRN PRN Reason: K+ < 3.5 Last Admin: 06/11/20 11:11 Dose: 40 meq Documented by: Pramipexole Dihydrochloride (Mirapex) 0.125 mg PO BID [facility] Last Admin: 06/12/20 08:32 Dose: 0.125 mg Documented by: Rifampin (Rifampin) 300 mg PO BID [facility]; Protocol Last Admin: 06/12/20 08:34 Dose: 300 mg Documented by: Senna/Docusate Sodium (Senna Plus Tablet) 1 tab PO HS [facility] Last Admin: 06/11/20 21:18 Dose: Not Given Documented by: Sodium Chloride (Saline Flush) 10 ml IV Q8 [facility] Last Admin: 06/12/20 05:31 Dose: 10 ml Documented by: Thiamine HCl (Vitamin B1) 100 mg PO DAILY [facility] Last Admin: 06/12/20 08:30 Dose: 100 mg Documented by: Vancomycin HCl (Vancomycin Per Pharmacy) 1 order IV UD [place] A/P Narrative A/P Narrative: * Acute change in mental status-likely pain medication related. Clinically improving. Continue crystalloid/thiamine * Hypernatremia-resolved with free water replacement * Hypokalemia 2.6. 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 per ID specialist's recommendations until 07/06 * Neuropathy continue gabapentin * Pain management hold baclofen/continue Tylenol/low-dose opioids avoid sedative hypnotics * DM type II continue sliding-scale insulin/CC diet/metformin * Full code * Prophylaxis heparin Plan * Replace potassium * Continue antibiotics * PT OT nutrition support * Pre-existing medical condition management home meds * Possible discharge in 24 hours pending clinical improvement Time Spent With Patient Time: Total time spent is greater than 50% in coordination of care (as documented) at patient's floor/unit and/or counseling patient: QUALITY VTE Deep Vein Thrombosis/Pulmonary Embolism Present on Admission: No
[2020-06-12] MEDS ORDERED: POTASSIUM CHLORIDE 20 MEQ TABLET PO ONE (11:56)
[2020-06-12] MEDS: MAGNESIUM OXIDE 400 MG TABLET PO SCH (12:03)
[2020-06-12] MEDS ORDERED: VANCOMYCIN 1,000 MG in 0.9 % SODIUM CHLORIDE 250 ML IV ONE (13:50)
== END 2020-06-12 15:10 | disposition home or self-care (01) ==
LOC: ED 15:24 → MEDSUR 15:24
PROVIDERS: ADMIT Internal Medicine; ATTEND Internal Medicine